=== PATIENT | female | born 1950 | race Caucasian/White ===

== ENCOUNTER 2022-12-23 07:56 | Outpatient (REF) | payer MEDICARE, SELFPAY ==
[2022-12-23 08:40] LABS: Hematocrit 43.4 % (37.0-47.0); Hemoglobin 13.9 g/dl (12.0-16.0); Mean Corpuscular Hemoglobin 28.7 pg (27.0-33.0); Mean Corpuscular Volume 89.7 fL (80.0-98.0); Mean Platelet Volume 11.7 fL (9.4-12.3); Platelet Count 229 X10*3/uL (160-400); Red Blood Count 4.84 X10*6/uL (4.20-5.50); Red Cell Distribution Width 13.8 % (11.0-16.0); White Blood Count 8.3 X10*3/uL (4.8-10.8)
[2022-12-23 08:47] LABS: Estimated Average Glucose 283 mg/dL; Hemoglobin A1c % 11.5 % (<6.0)
[2022-12-23 09:08] LABS: Alanine Aminotransferase 11 U/L (0-31); Albumin Level 3.9 g/dL (3.5-5.0); Alkaline Phosphatase 91 U/L (39-117); Anion Gap 15 (12-20); Aspartate Amino Transferase 15 U/L (5-31); Bilirubin Total 0.8 mg/dL (0.0-1.0); Blood Urea Nitrogen 17 mg/dL (9-16); Calcium 9.3 mg/dL (8.4-10.2); Carbon Dioxide 22 mmol/L (22-29); Chloride 108 mmol/L (96-108); Cholesterol 192 mg/dL (<200); Estimated Glomerular Filt Rate 44; Glucose Fasting 207 mg/dL (60-99); HDL Cholesterol 92 mg/dL (>40); LDL Cholesterol Calculated 83 mg/dL (<100); Potassium 4.2 mmol/L (3.3-5.1); Sodium 141 mmol/L (135-145); Total Protein 6.7 g/dL (6.5-8.0); Triglycerides 87 mg/dL (<150)
[2022-12-23 10:30] LABS: Appearance Urine Clear; Color Urine Yellow; Glucose Urine UA Negative (Negative); Leukocyte Esterase Urine Negative (Negative); Nitrite Urine Negative (Negative); UMIC TRIGGER UACC YES; Urine Blood Negative (Negative); Urine Ketones Negative (Negative); Urine Protein 300 (3+) mg/dL (Neg-Trace)
[2022-12-23 10:33] LABS: Bacteria Urine None Seen (None Seen); Hyaline Casts Urine 0-2 /LPF (0-2); RBC Urine 0-2 /HPF (0-2); WBC Urine 0-5 /HPF (0-5)
== END 2022-12-23 07:57 | disposition home or self-care (01) ==
LOC: HO.LAB 07:56
PROVIDERS: PCP Physician Assistant; Visit Provider Physician Assistant
DX: I10 Essential (primary) hypertension (principal); E78.2 Mixed hyperlipidemia; E11.65 Type 2 diabetes mellitus with hyperglycemia; Z79.4 Long term (current) use of insulin
CPT/HCPCS: 36415; 80053; 80061; 81001; 83036; 85027

== ENCOUNTER 2022-12-31 13:18 | Outpatient (AMB) | payer MEDICARE, SELFPAY ==
[2022-12-31 13:21] VITALS: BP 148/78; PULSE 115; O2SAT 96; BMI 47.5
--- NOTE | 2022-12-31 13:21 | A.OFFPC_ITS ---
Vital Signs 3 12/31/22 13:21 12/31/22 14:52 Height 5 ft 2 in Weight 260 lb BMI 47.5 BP 148/78 H 136/78 Blood Pressure Location Lt brachial Lt brachial Position Sitting Sitting Pulse 115 H 62 Pulse Source Pulse Oximeter Palpation Temp Source Skin Pulse Oximetry (%) 96 Oxygen Delivery Method Room Air Intake Visit Reasons: Physical Exam Intake Note: Patient is here today for a physical. pt states constant sweating X8 months, pt states right arm and breast pain X1 week. 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 Allergies codeine [Codeine] Allergy (Mild, Verified 12/31/22 13:49) NAUSEA/CONFUSION acetaminophen [Percocet] Allergy (Unknown, Verified 12/31/22 13:49) Unknown aspirin [From Percodan] Allergy (Unknown, Verified 12/31/22 13:49) Unknown hydrochlorothiazide Allergy (Unknown, Verified 12/31/22 13:49) Unknown lisinopril Allergy (Unknown, Verified 12/31/22 13:49) Unknown oxycodone [Percocet] Allergy (Unknown, Verified 12/31/22 13:49) Unknown Medication List - Last Reconciled 12/31/22 by NURY Morrissey alprazolam 1 mg PO BID 30 days amlodipine 5 mg PO DAILY blood sugar diagnostic (FreeStyle Test strips) 1 strip miscellaneous TID blood-glucose meter (FreeStyle [place] Lite kit) As directed famotidine 40 mg PO BID fexofenadine 180 mg PO DAILY PRN insulin aspart U-100 (Novolog FlexPen U-100 Insulin aspart) 14 units (0.14 mL) subcut Q8H 30 days insulin glargine U-300 conc (Toujeo SoloStar U-300 Insulin) 40 units (0.1333 mL) subcut BEDTIME 30 days omeprazole 20 mg PO DAILY sertraline 200 mg (2 x 100 mg) PO DAILY simvastatin 20 mg PO DAILY valsartan-hydrochlorothiazide 320-25 mg 1 tab PO DAILY Tobacco use date assessed: 12/31/22 Fall risk assessment: No Falls in past year Last assessed Fall Risk: 12/31/22 Dental Screening Dental Screen Date: 12/31/22 Did you have a dental visit in the last 12 months?: No Did you have a dental problem in the last 6 months where you did not have access to dental care?: No HPI Physical Exam 2 HPI0 Details Patient is a 72-year-old female who presents today for physical exam. Patient of RUDI Gordon. medical history significant for diabetes type 2, anxiety, hyperlipidemia, hypertension, GERD. Today we discussed patient's need for colon cancer screening, mammogram, and bone density screening. Patient declined colonoscopy and she would like to have Cologuard instead. She reports tetanus vaccine in the past 10 years. Normal eye exam 11/2022. Recent blood work results reviewed with the patient A1c 11.5 12/2022, patient reports that she is afraid to take 40 units of Toujeo at night and she was taking 22 units at night only. Reports blood sugars in the morning in 200s. She is on NovoLog sliding scale t.i.d. with meals. Patient denies shortness of breath or chest pain. Patient reports increased sweating for the past 8 months, she did use new deodorant and then she started with right breast pain that radiated to her right armpit and then right back, now she reports skin tag on her right back area. Denies any right breast lumps. Also reports hair loss for the past 9 months. Reports that Pepcid is not helping with acid reflux and she switched to omeprazole. [facility] Surgical History History of skin cancer History of removal of laparoscopic gastric banding device History of lumpectomy of left breast History of tubal ligation History of hernia repair Hx of laparoscopic gastric banding Family History Father No problems noted. Mother No problems noted. Family/Other Breast cancer Social History Housing: Condominium Alcohol intake: former Patient Tobacco Use Status: Never used Tobacco service: No Current occupational status: retired Cognitive needs: Yes (cane ) Hearing needs: No Vision needs: No Questionnaire PHQ-9 Over the last 2 weeks, how often have you been bothered by any of the following problems? 1. Little interest or pleasure in doing things: several days 2. Feeling down, depressed, or hopeless: not at all 3. Trouble falling or staying asleep, or sleeping too much: not at all 4. Feeling tired or having little energy: not at all 5. Poor appetite or overeating: not at all 6. Feeling bad about yourself - or that you are a failure or have let yourself or your family down: not at all 7. Trouble concentrating on things, such as reading the newspaper or watching television: not at all 8. Moving or speaking so slowly that other people could have noticed. Or the opposite - being so fidgety or restless that you have been moving around a lot more than usual: not at all 9. Thoughts that you would be better off or of hurting yourself in some way: not at all Total score: 1 Depression Screening Interpretation: Negative 42802 - PHQ-9 Billing: Yes Source: Developed by Drs. Chaparro Caro, Berta Aguilera, Vijay Zelaya and colleagues, with an educational jennie from [employer]. Thrive Questionnaire Date Thrive assessed: 10/09/20 AUDIT C Alcohol Use Questionnaire (AUDIT-C) 1. How often do you have a drink containing alcohol?: Never 2. How many drinks containing alcohol do you have on a typical day when you are drinking?: 1 or 2 (0) 3. How often do you have six or more drinks on one occasion?: Never Total Score: 0 Score Reviewed/Action Taken: No JUAN PABLO-7 AMB Questionnaire JUAN PABLO-7 Date JUAN PABLO - 7 assessed: 12/31/22 (pt is taking medication ) Feeling nervous, anxious, or on edge: 1 = Several days Not being able to stop or control worryin = Not at all Worrying too much about different things: 0 = Not at all Trouble relaxin = Not at all Being so restless that it is hard to sit still: 0 = Not at all Becoming easily annoyed or irritable: 0 = Not at all Feeling afraid as if something awful might happen: 0 = Not at all Total JUAN PABLO-7 score (0-4 normal; 5-9 mild; 10-14 moderate; 15-21 severe): 1 Source: Developed by Drs. Chaparro Caro, Berta Aguilera, Vijay Zelaya and colleagues, with an educational jennie from [employer]. JUAN PABLO-7 Assessment Billing JUAN PABLO-7 Assessment Tool: JUAN PABLO-7 Assessment 93418 Review of Systems Const Denies body aches, Denies chills, Denies fever(s) and Denies headache(s) Eyes Denies change in vision ENT Denies dizziness, Denies otalgia, Denies headache(s), Denies nasal discharge, Denies sinus pain and Denies sore throat Card Denies chest pain, Denies edema, Denies lightheadedness and Denies dyspnea Resp Denies cough, Denies dyspnea and Denies wheezing GI Denies constipation, Denies diarrhea, Denies nausea and Denies vomiting Denies dysuria Musc Denies myalgias Skin/Breast Reports as per HPI and Denies rash Neuro Denies dizziness and Denies headache(s) Aller/Immun Denies wheezing Physical exam (Primary Care) Vital Signs: Last Vital Signs Pulse 62 12/31/22 14:52 BP 136/78 12/31/22 14:52 Pulse Ox 96 12/31/22 13:21 Oxygen Delivery Method Room Air 12/31/22 13:21 BMI result Body Mass Index 47.5 Tobacco/Smoking Status: Tobacco use Status Tobacco use date assessed 12/31/22 12/31/22 13:23 Patient Tobacco Use Status Never used Tobacco 12/31/22 13:23 PHQ-9: PHQ-9 Score PHQ-9: Total score 1 01/02/23 16:08 Depression Screening Interpretation: Negative Thrive Assessment: Date of Thrive Assessment Date Thrive assessed 10/09/20 12/31/22 13:23 Const General: cooperative and no acute distress Orientation/consciousness: patient oriented x3 HENMT Head: Yes normocephalic and Yes atraumatic Ears: TM's normal bilaterally Face and sinus: Yes sinuses nontender Mouth: oropharynx normal and moist mucous membranes Throat: Yes posterior oropharynx normal Eyes General: appearance normal, both eyes and all related structures Pupils: Equal, round and reactive pupils present EOM: EOMs intact bilaterally Neck Neck: Yes normal visual inspection, Yes full ROM and Yes no lymphadenopathy Thyroid: Thyroid normal Chest Breast/axilla inspection: normal inspection of the breasts (right ) Breast/axilla palpation: normal palpation of the breasts (right ) and no axillary lymphadenopathy (right ) Chest/axillae images: 2 1. Right breast 11:00 o'clock tenderness noted, skin is intact, no palpable lump, no signs of infection noted Resp Effort & Inspection: normal respiratory effort and able to speak in complete sentences Auscultation: clear to auscultation bilaterally, no crackles, no rales, no rhonchi and no wheezes Cardio Rate: regular rate Rhythm: regular rhythm Heart sounds: S1 normal heart sound present, S2 normal heart sound present and no murmurs GI Palpation (GI): Soft to palpation, not firm, nontender, no guarding, not rigid and no hepatosplenomegaly Auscultation: normal bowel sounds Skin Other: Right upper back intact skin tag, patient reports tenderness Neuro General: patient oriented x3 Cranial nerves: Yes Equal, round and reactive pupils present Gait exam (Neuro): Normal gait present Extrem General: Yes full ROM and No edema Assessment and Plan Assessment & Plan (1) Sweating increase: Code(s): R61 - Generalized hyperhidrosis Plan: Dermatology referral (2) Skin tag: Code(s): L91.8 - Other hypertrophic disorders of the skin Plan: Dermatology referral (3) Breast pain, right: Code(s): N64.4 - Mastodynia Plan: Right breast 11:00 o'clock tenderness noted, skin is intact, no palpable lump, no signs of infection noted Will obtain mammogram and ultrasound of right breast (4) GERD (gastroesophageal reflux disease): Code(s): K21.9 - Gastro-esophageal reflux disease without esophagitis Plan: Continue omeprazole 20 mg daily Avoid GERD trigger foods Do not lay down 2-3 hours after evening meal (5) Post-menopausal: Code(s): Z78.0 - Asymptomatic menopausal state (6) Breast cancer screening: Code(s): Z12.39 - Encounter for other screening for malignant neoplasm of breast Qualifiers: Breast cancer screening modality: mammogram Qualified Code(s): Z12.31 - Encounter for screening mammogram for malignant neoplasm of breast (7) Colon cancer screening: Code(s): Z12.11 - Encounter for screening for malignant neoplasm of colon (8) HTN (hypertension): Code(s): I10 - Essential (primary) hypertension Qualifiers: Hypertension type: essential hypertension Qualified Code(s): I10 - Essential (primary) hypertension Plan: Goal BP equal or less than 140/90 Continue current treatment Low-sodium diet and weight loss (9) HLD (hyperlipidemia): Code(s): E78.5 - Hyperlipidemia, unspecified Qualifiers: Hyperlipidemia type: mixed hyperlipidemia Qualified Code(s): E78.2 - Mixed hyperlipidemia Plan: Continue current treatment Low-cholesterol diet and weight loss (10) JUAN PABLO (generalized anxiety disorder): Code(s): F41.1 - Generalized anxiety disorder Plan: Continue sertraline and Xanax b.i.d. 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 with meals: If blood sugar 150-199 take 8 units, 200-249 take 10 units, 250-299 take 12 units, 300-349 take 14 units, 350-399 takes 16 units, if blood sugar over 400, call MD. Reinforced low-carbohydrate diet and weight loss Endocrinology referral Patient reports diabetic eye exam 11/2022. (12) Adult general medical exam: Code(s): Z00.00 - Encounter for general adult medical examination without abnormal findings Plan: Repeat in 1 year (13) Morbid obesity with BMI of 45.0-49.9, adult: Code(s): E66.01 - Morbid (severe) obesity due to excess calories; Z68.42 - Body mass index [BMI] 45.0-49.9, adult Plan: Healthy food choices and exercise as tolerated Plan Follow-up with PCP in 3 months or sooner as needed Orders: Orders 2 MM tomosynthesis screening BI 12/31/22 Z12.39 - Encounter for other screening for malignant neoplasm of breast XR DEXA axial skeleton 12/31/22 Z78.0 - Asymptomatic menopausal state Microalbumin, Random (w Creat) 12/31/22 E11.9 - Type 2 diabetes mellitus without complications US breast RT complete 12/31/22 N64.4 - Mastodynia Referrals 2 Cologuard Test Z12.11 - Encounter for screening for malignant neoplasm of colon, Z12.12 - Encounter for screening for malignant neoplasm of rectum Dermatology Referral L91.8 - Other hypertrophic disorders of the skin, R61 - Generalized hyperhidrosis Endocrinology Referral E11.9 - Type 2 diabetes mellitus without complications Medications: New 2 flash glucose scanning reader (FreeStyle [place] 2 [place]) As directed 1 ea 0RF E11.9 - Type 2 diabetes mellitus without complications omeprazole 20 mg PO DAILY 30 caps 2RF K21.9 - Gastro-esophageal reflux disease without esophagitis flash glucose sensor (FreeStyle [place] 2 Sensor kit) As directed 1 ea 3RF E11.9 - Type 2 diabetes mellitus without complications Changed 2 From insulin glargine U-300 conc (Toujeo SoloStar U-300 Insulin) 40 units (0.1333 mL) subcut BEDTIME 30 days 3.999 mL 3RF E11.9 - Type 2 diabetes mellitus without complications To insulin glargine U-300 conc (Toujeo SoloStar U-300 Insulin) 30 units (0.1 mL) subcut DAILY 30 days 3 mL 3RF E11.9 - Type 2 diabetes mellitus without complications Refilled 2 simvastatin 20 mg PO DAILY 90 tabs 3RF E78.5 - Hyperlipidemia, unspecified sertraline 200 mg (2 x 100 mg) PO DAILY 180 tabs 2RF Discontinued 2 famotidine Discontinued Reason: Doctor's Order 40 mg PO BID 180 tabs 2RF Coding Level of Care Code Est Pt Prev Care >65y(54971) Diagnoses Sweating increase R61 Skin tag L91.8 Breast pain, right N64.4 GERD (gastroesophageal reflux disease) K21.9 Post-menopausal Z78.0 Encounter for screening mammogram for malignant neoplasm of breast Z12.31 Breast cancer screening modality: mammogram Colon cancer screening Z12.11 Essential hypertension I10 Hypertension type: essential hypertension Mixed hyperlipidemia E78.2 Hyperlipidemia type: mixed hyperlipidemia JUAN PABLO (generalized anxiety disorder) F41.1 Type 2 diabetes mellitus with hyperglycemia, with long-term current use of insulin E11.65; Z79.4 Diabetes mellitus complication status: with hyperglycemia 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
[2022-12-31 14:52] VITALS: BP 136/78; PULSE 62
== END 2022-12-31 14:57 | disposition home or self-care (01) ==
PROVIDERS: PCP Physician Assistant; Visit Provider Nurse Practitioner Family
DX: Z00.00 Encounter for general adult medical examination without abnormal findings (principal); K21.9 Gastro-esophageal reflux disease without esophagitis; I10 Essential (primary) hypertension; E11.65 Type 2 diabetes mellitus with hyperglycemia; Z79.4 Long term (current) use of insulin; Z68.42 Body mass index [BMI] 45.0-49.9, adult; E66.01 Morbid (severe) obesity due to excess calories; L91.8 Other hypertrophic disorders of the skin; R61 Generalized hyperhidrosis; N64.4 Mastodynia; Z78.0 Asymptomatic menopausal state; E78.2 Mixed hyperlipidemia
CPT/HCPCS: 99397

== ENCOUNTER 2023-01-05 17:16 | Emergency (ER) | payer MEDICARE, SELFPAY ==
--- NOTE | ~2023-01-05 | XR_ITS ---
EXAMINATION: XR CHEST CLINICAL INFORMATION: Pain COMPARISON: None available. TECHNIQUE: 2 views of the chest were obtained. FINDINGS: The cardiac silhouette is normal. There is left basilar atelectasis. There are no areas of consolidation. There are no pleural effusions or pneumothoraces. The bones and soft tissues are unremarkable for the patient's age. XR/XR chest 2V IMPRESSION: Left basilar atelectasis.
--- NOTE | ~2023-01-05 | US_ITS ---
EXAMINATION: US DIAGNOSTIC ULTRASOUND BREAST, RIGHT CLINICAL INFORMATION: Right breast upper outer quadrant pain, without palpable lump. COMPARISON: None available. TECHNIQUE: Ultrasound of the breast is performed with real-time devries scale imaging and color Doppler. FINDINGS: There is no focal suspicious finding. There is no solid mass, architectural abnormality, duct ectasia, or edema in the soft tissue planes. US/US breast RT limited IMPRESSION: Negative examination. ASSESSMENT: BI-RADS 1: Negative RECOMMENDATION: 1. Continued annual screening mammography. 2. Management of right breast upper outer quadrant pain without palpable lump on a clinical basis. This patient's information was entered into a reminder system with a target due date for their next mammogram.
[2023-01-05 17:29] VITALS: BP 194/86; PULSE 77; RESP 18; TEMP 36.6; O2SAT 96; BMI 47.5
--- NOTE | 2023-01-05 17:37 | ED_ITS ---
HPI - General Adult General Chief complaint: General Medical Stated complaint: shoulder pain, no injury Time Seen by Provider: 01/05/23 17:41 Source: patient, RN notes reviewed and old records reviewed Mode of arrival: ambulatory Limitations: no limitations History of Present Illness HPI narrative: 72-year-old female with past medical history significant for morbid obesity, GERD, insulin-dependent diabetes, hypertension, hyperlipidemia presents for evaluation of multiple complain Patient's main complaint is right-sided shoulder and breast pain. She states the pain has been present for quite some time. The pain radiates to her mid back. She also complains of increased sweating as well as weight loss and hair loss She reports that the symptoms started at least 8 months ago She also reports about a 50 lb weight loss in the last year Patient also reports increased sweating especially from her axilla She is following with her primary care provider and was seen just this past week pain She had ultrasound of breath scheduled for 3 weeks from now. She denies any fevers, chills, cough Denies any injury to the shoulder, chest or back She reports that other than her insulin being adjusted due to uncontrolled diabetes she has not had any medication changes recently Related Data Previous Rx's Medication Instructions Recorded fexofenadine 180 mg tablet 180 mg PO DAILY PRN allergy 10/25/20 symptoms #30 tabs amlodipine 5 mg tablet 5 mg PO DAILY #90 tabs 05/17/22 blood sugar diagnostic (FreeStyle 1 strip miscellaneous TID #300 05/17/22 Test strips) strips valsartan 320 1 tab PO DAILY #90 tabs 05/17/22 mg-hydrochlorothiazide 25 mg tablet insulin aspart U-100 100 unit/mL 14 unit (0.14 mL) subcut Q8H 30 11/06/22 (3 mL) subcutaneous pen (Novolog days #12.6 mL FlexPen U-100 Insulin aspart) blood-glucose meter (FreeStyle #1 ea 11/22/22 [place] Lite kit) alprazolam 1 mg tablet 1 mg PO BID 30 days #60 tabs 11/25/22 insulin glargine U-300 conc 300 30 unit (0.1 mL) subcut DAILY 30 12/31/22 unit/mL (1.5 mL) subcutaneous pen days #3 mL (Toujeo SoloStar U-300 Insulin) omeprazole 20 mg capsule,delayed 20 mg PO DAILY #30 caps 12/31/22 release sertraline 100 mg tablet 200 mg (2 x 100 mg) PO DAILY #180 12/31/22 tabs simvastatin 20 mg tablet 20 mg PO DAILY #90 tabs 12/31/22 flash glucose scanning reader #1 ea 01/01/23 (FreeStyle [place] 2 [place]) flash glucose sensor (FreeStyle #1 ea 01/01/23 Martin 2 Sensor kit) Allergies Allergy/AdvReac Type Severity Reaction Status Date / Time codeine [Codeine] Allergy Mild NAUSEA/CONF Verified 12/31/22 13:49 USION aspirin [From Percodan] Allergy Unknown Unknown Verified 12/31/22 13:49 hydrochlorothiazide Allergy Unknown Unknown Verified 12/31/22 13:49 lisinopril Allergy Unknown Unknown Verified 12/31/22 13:49 oxycodone [Percocet] Allergy Unknown Unknown Verified 12/31/22 13:49 Review of Systems 2 Constitutional: Constitutional: Denies chills, Reports excessive sweating, Denies fever(s), Denies headache(s), Reports lethargy, Reports malaise and Reports weight loss Eyes: Eyes: Denies blurry vision and Denies exophthalmos ENT: Denies dizziness and Denies headache(s) Cardiovascular: Cardiovascular: Reports chest pain (right sided) and Denies dyspnea Respiratory: Respiratory: Denies cough, Denies pain with cough and Denies dyspnea Gastrointestinal: Gastrointestinal: Denies abdominal pain, Denies nausea and Denies vomiting Genitourinary: Genitourinary: Denies difficulty voiding Musculoskeletal: Musculoskeletal: Reports back pain Integumentary/Breasts: Skin/Breast: Denies rash Neurologic: Denies dizziness and Denies headache(s) Endocrine: Endocrine: Reports excessive sweating PMFSH Past Medical History Surgical History History of skin cancer History of removal of laparoscopic gastric banding device History of lumpectomy of left breast History of tubal ligation History of hernia repair Hx of laparoscopic gastric banding Family History Family History Father No problems noted. Mother No problems noted. Family/Other Breast cancer Social History Social History (Reviewed 12/31/22 @ 14:19 by LYNN Morrissey Housing: Condominium Alcohol intake: never Patient Tobacco Use Status: Never used Tobacco Smoked in Last 30 Days: No Use of substances other than those prescribed or required for medical reasons: No Advance Directives: No Advance Directives Information Provided: No service: No Current occupational status: retired Cognitive needs: Yes (cane ) Hearing needs: No Vision needs: No Physical Exam ED Vital Signs: Vital Signs - 24 hr 01/05/23 17:29 01/05/23 19:59 Temperature 97.8 F 98.1 F Pulse Rate 77 67 Respiratory Rate 18 19 Blood Pressure 194/86 H 164/77 H Pulse Oximetry 96 98 Oxygen Delivery Method Room Air Room Air BMI result Body Mass Index 47.5 Const General: healthy appearing, comfortable, no acute distress, alert and awake Nutritional Appearance: well nourished Orientation/consciousness: patient oriented x3 HENMT Head: Yes normocephalic and Yes atraumatic Eyes Eyelids: Yes eyelids normal Conjunctivae: conjunctivae normal Sclerae: sclerae normal Corneas: corneas normal Pupils: Equal, round and reactive pupils present EOM: EOMs intact bilaterally Neck Neck: Yes full ROM Chest Chest palpation & inspection: normal inspection of the chest Breast/axilla palpation: normal palpation of the breasts, normal palpation of the axillae and no axillary lymphadenopathy Resp Effort & Inspection: normal respiratory effort, able to speak in complete sentences and not labored Cardio Rate: regular rate Rhythm: regular rhythm GI Inspection: No distended Palpation (GI): Soft to palpation, not firm, nontender, no guarding and not rigid Skin General skin exam: no rashes or lesions noted and elasticity normal Neuro General: patient oriented x3 Cranial nerves: Yes Equal, round and reactive pupils present and Yes Bilaterally intact EOM present Cognition (Neuro): normal cognition Extrem Other: Moving all extremities well without any obvious deformities Course Course Course Narrative: RME: 72 yold female presents to the ED for chronic right breast radiating towards back. Breast US and mammgoram ordered. labs ordered and US ordered Reevaluation(s) Reevaluation #1: Patient's labs reviewed without any concerning abnormalities. Chest x-ray showed left basilar atelectasis. Still awaiting breast ultrasound. Time: 19:59 Medical Decision Making Medical Decision Making MDM Narrative: 72-year-old female presents for evaluation of numerous complaints. Her chief complaint is right-sided chest wall pain/breast pain. Will get ultrasound of the breast to rule out mass or abscess. There are no overlying skin changes. Will obtain an EKG to evaluate her chest pain but I feel ACS is much less likely as the pain radiates the right side and is reproducible on exam. Will get a chest x-ray as she reports her pain is worse with deep breathing. She has no shortness of breath, hypoxia or tachycardia, PE is much less likely. I will add on a TSH with reflex T4 and a random cortisol level. She does have some degree of central obesity, so Huttig's disease is on differential. Differential Diagnosis Differential Diagnoses: The differential diagnosis associated with the presentation includes Chest pain ACS Breast mass Abscess Smitha disease Hyperthyroid is Hypothyroidism Metabolic derangement Uncontrolled diabetes Lab Data MDM Lab Attestation statement: I reviewed the patient's lab results. No leukocytosis, no significant anemia, normal platelet count. No electrolyte abnormalities. Mild elevation of BUN and creatinine 35 and a creatinine 1.51. He patient is not nauseous, vomiting or having diarrhea, she may hydrate orally. Hyperglycemia without evidence of DKA. Normal LFTs 01/05/23 18:27 01/05/23 18:27 Labs: Lab Results 01/05/23 01/05/23 Range/Units 17:58 18:27 WBC 8.1 (4.8-10.8) X10*3/uL RBC 4.81 (4.20-5.50) X10*6/uL Hgb 13.8 (12.0-16.0) g/dl Hct 42.6 (37.0-47.0) % MCV 88.6 (80.0-98.0) fL MCH 28.7 (27.0-33.0) pg MCHC 32.4 (31.0-35.0) g/dl RDW 13.6 (11.0-16.0) % Plt Count 281 (160-400) X10*3/uL MPV 11.1 (9.4-12.3) fL Immature Gran % (Auto) 0.6 H (0.0-0.4) % Neut % (Auto) 63.8 (45-73) % Lymph % (Auto) 27.1 (20-40) % [place] % (Auto) 6.3 (2-11) % Eos % (Auto) 1.6 (0-4) % Baso % (Auto) 0.6 (0-2) % Lymph # (Auto) 2.2 (1.2-4.9) X10*3/uL [place] # (Auto) 0.5 (0.1-1.2) X10*3/uL Eos # (Auto) 0.1 (0.0-0.4) X10*3/uL Baso # (Auto) 0.1 (0.0-0.2) X10*3/uL Abs Immat Gran (auto) 0.05 H (0.00-0.03) X10*3/uL Absolute Neuts (auto) 5.2 (2.0-8.3) x10*3/uL Absolute Nucleated RBC 0.000 (0.0-0.012) X10*3/uL Nucleated RBC % (auto) 0.0 (0.0-0.2) /100WBC Sodium 141 (135-145) mmol/L Potassium 4.3 (3.3-5.1) mmol/L Chloride 108 (96-108) mmol/L Carbon Dioxide 23 (22-29) mmol/L Anion Gap 14 (12-20) BUN 35 H (9-16) mg/dL Creatinine 1.51 H (0.5-1.4) mg/dL Estim Creat Clear Calc 40.4 Estimated GFR 34 POC Glucose 190 H (60-115) mg/dL Random Glucose 209 H (60-115) mg/dL Calcium 9.8 (8.4-10.2) mg/dL Total Bilirubin 0.4 (0.0-1.0) mg/dL AST 12 (5-31) U/L ALT 12 (0-31) U/L Alkaline Phosphatase 82 (39-117) U/L Total Protein 6.8 (6.5-8.0) g/dL Albumin 4.1 (3.5-5.0) g/dL TSH 2.59 (0.32-4.0) uIU/mL Random Cortisol 7.8 ug/dL Independent Interpretation I performed an independent interpretation of an: Plain X-Ray (No focal infiltrates) Radiology Impression Discussion of test interpretation with radiology: I have reviewed the radiologist's reading. (Chest x-ray -left basilar atelectasis) Discharge Plan Discharge Clinical Impression: Right-sided chest wall pain Patient Disposition: Home, Self-Care Instructions: Chest Wall Pain (ED) Additional Instructions: Your workup in the emergency department today was reassuring. Your blood work was in the significant for very mild dehydration sign you may drink lots of fluids for next 2-3 days to help improve this. You had multiple labs drawn including a thyroid studies and and cortisol level which is within normal limits. Your chest x-ray did not show any explanation of your or abnormality Follow-up with your primary doctor, you may benefit from seeing an sales engineering manager In the meantime, you may use ibuprofen/Tylenol for pain. You may try methocarbamol to help with muscle spasms to see if this helps alleviate your symptoms This may make you sleepy, did not drink alcohol or drive after taking Prescriptions: No Action fexofenadine 180 mg tablet 180 mg PO DAILY PRN (Reason: allergy symptoms) Qty: 30 4RF valsartan-hydrochlorothiazide 320-25 mg tablet 1 tab PO DAILY Qty: 90 3RF amlodipine 5 mg tablet 5 mg PO DAILY Qty: 90 3RF FreeStyle Test Strip 1 strip miscellaneous TID Qty: 300 6RF insulin aspart U-100 [Novolog FlexPen U-100 Insulin] 100 unit/mL (3 mL) insulin pen 14 unit subcut Q8H 30 Days Qty: 12.6 3RF (DME) blood-glucose meter [FreeStyle [place] Lite] Kit See Rx Instructions .Route Qty: 1 0RF Rx Instructions: As directed alprazolam 1 mg tablet 1 mg PO BID 30 Days Qty: 60 0RF sertraline 100 mg tablet 200 mg PO DAILY Qty: 180 2RF simvastatin 20 mg tablet 20 mg PO DAILY Qty: 90 3RF Toujeo SoloStar U-300 Insulin 300 unit/mL (1.5 mL) insulin pen 30 unit subcut DAILY 30 Days Qty: 3 3RF omeprazole 20 mg capsule,delayed release(DR/EC) 20 mg PO DAILY Qty: 30 2RF (DME) FreeStyle [place] 2 [place] Misc See Rx Instructions .MEDSUPPLY Qty: 1 0RF Rx Instructions: As directed (DME) FreeStyle Martin 2 Sensor Kit See Rx Instructions .MEDSUPPLY Qty: 1 3RF Rx Instructions: As directed
[2023-01-05 18:03] LABS: Glucose, Whole Blood 190 mg/dL (60-115)
--- NOTE | 2023-01-05 18:07 | PC.NURSE ---
provider bedside speaking w/ pt to formulate plan of care. pt comes in today d/t increase in right breast discomfort that radiates towards right shoulder. pt also verbalizing hair loss, tooth loss, weight loss, and an increase in stress. pt also states that she recently had change in insulin dosages/medications. provider aware. POC = 190 mg/dL. pt currently being transported to ultrasound. will finish reassessing pt when she returns.
[2023-01-05 18:32] LABS: MANUAL DIFF FLAG NO
[2023-01-05 18:33] LABS: Basophils Absolute Auto 0.1 X10*3/uL (0.0-0.2); Basophils Percent Auto 0.6 % (0-2); Eosinophils Absolute Auto 0.1 X10*3/uL (0.0-0.4); Eosinophils Percent Auto 1.6 % (0-4); Hematocrit 42.6 % (37.0-47.0); Hemoglobin 13.8 g/dl (12.0-16.0); Imm Gran Abs Auto 0.05 X10*3/uL (0.00-0.03); Imm Gran Pct Auto 0.6 % (0.0-0.4); Lymphocytes Absolute Auto 2.2 X10*3/uL (1.2-4.9); Lymphocytes Percent Auto 27.1 % (20-40); Mean Corpuscular HGB Conc 32.4 g/dl (31.0-35.0); Mean Corpuscular Hemoglobin 28.7 pg (27.0-33.0); Mean Corpuscular Volume 88.6 fL (80.0-98.0); Mean Platelet Volume 11.1 fL (9.4-12.3); Monocytes Absolute Auto 0.5 X10*3/uL (0.1-1.2); Monocytes Percent Auto 6.3 % (2-11); Neutrophils Absolute Auto 5.2 x10*3/uL (2.0-8.3); Neutrophils Percent Auto 63.8 % (45-73); Platelet Count 281 X10*3/uL (160-400); Red Blood Count 4.81 X10*6/uL (4.20-5.50); Red Cell Distribution Width 13.6 % (11.0-16.0); White Blood Count 8.1 X10*3/uL (4.8-10.8)
[2023-01-05 18:47] LABS: Alanine Aminotransferase 12 U/L (0-31); Albumin Level 4.1 g/dL (3.5-5.0); Alkaline Phosphatase 82 U/L (39-117); Anion Gap 14 (12-20); Aspartate Amino Transferase 12 U/L (5-31); Bilirubin Total 0.4 mg/dL (0.0-1.0); Blood Urea Nitrogen 35 mg/dL (9-16); Calcium 9.8 mg/dL (8.4-10.2); Carbon Dioxide 23 mmol/L (22-29); Chloride 108 mmol/L (96-108); Creatinine Clr Calc Pharmacy 40.4; Estimated Glomerular Filt Rate 34; Glucose Random 209 mg/dL (60-115); Potassium 4.3 mmol/L (3.3-5.1); Sodium 141 mmol/L (135-145); Total Protein 6.8 g/dL (6.5-8.0)
[2023-01-05 19:07] LABS: Cortisol Random 7.8 ug/dL; TSH reflex Free T4 2.59 uIU/mL (0.32-4.0)
[2023-01-05 19:59] VITALS: BP 164/77; PULSE 67; RESP 19; TEMP 36.7; O2SAT 98
[2023-01-05 20:00] VITALS: BP 171/100; PULSE 70; RESP 18; TEMP 36.6; O2SAT 97
--- NOTE | 2023-01-05 20:02 | ECG_ITS ---
Test Reason : chest pain Blood Pressure : / mmHG Vent. Rate : 068 BPM Atrial Rate : 068 BPM P-R Int : 154 ms QRS Dur : 084 ms QT Int : 398 ms P-R-T Axes : 036 -12 054 degrees QTc Int : 423 ms Poor data quality, interpretation may be adversely affected Normal sinus rhythm Minimal voltage criteria for LVH, may be normal variant ( R in aVL ) Nonspecific ST and T wave abnormality Abnormal ECG When compared with ECG of 25-AUG-2008 13:50, T wave inversion now evident in Lateral leads Referred By: Tian Otoole Electronically Signed By:FERN MOORE
--- NOTE | 2023-01-05 20:49 | PC.NURSE ---
lyudmila. ben equally. talking w/no distress. +CMS. niece at bedside. resting. no cp/sob/dizziness
== END 2023-01-05 22:06 | disposition home or self-care (01) ==
PROVIDERS: Physician Assistant; Emergency Provider Emergency Medicine Emergency Medical Services; PCP Physician Assistant
DX: R07.89 Other chest pain (principal); M54.50 Low back pain, unspecified; N64.4 Mastodynia; E11.9 Type 2 diabetes mellitus without complications; Z79.4 Long term (current) use of insulin; Z79.899 Other long term (current) drug therapy
CPT/HCPCS: 36415; 71046; 76642; 80053; 82533; 82947; 84443; 85025; 93005; 99284

== ENCOUNTER 2023-01-17 13:01 | Outpatient (REF) | payer MEDICARE, SELFPAY | END 2023-01-17 13:02 | disposition home or self-care (01) | LOC: HO.MAMMO 13:01 | PROVIDERS: PCP Physician Assistant; Visit Provider Nurse Practitioner Family | DX: N64.4 Mastodynia (principal) | CPT/HCPCS: 76642; 77062; 77066 ==

== ENCOUNTER → 2023-01-17 13:30 | Outpatient (BNV) | payer MEDICARE, SELFPAY | PROVIDERS: PCP Physician Assistant; Visit Provider Radiology Diagnostic Radiology | DX: N60.11 Diffuse cystic mastopathy of right breast (principal); R92.323 Mammographic fibroglandular density, bilateral breasts | CPT/HCPCS: 76642; 77062; 77066 ==

== ENCOUNTER 2023-02-07 10:28 | Outpatient (REF) | payer MEDICARE, SELFPAY ==
--- NOTE | ~2023-02-07 | MM_ITS ---
EXAMINATION: BONE DENSITOMETRY CLINICAL INDICATION: Menopause. COMPARISON: This is the patient's baseline examination. TECHNIQUE: Using a [employer] DXA System (software version: 13.1) manufactured by [employer], dual-energy x-ray absorptiometry was performed of the lumbar spine and left hip. The images are of good technical quality. Summary results are attached. FINDINGS: LEFT FEMUR, NECK: BMD 0.739 g/cm2, Z-score -1.1, T-score -2.1, osteopenia. LEFT FEMUR, TOTAL: BMD 0.894 g/cm2, Z-score -0.1, T-score -0.9, normal. AP SPINE L1-L3 (excluding L4): The data of L1-L4 has been changed to exclude the L4 vertebral body, because degenerative sclerosis at this level may cause overestimation of lumbar spine density. BMD 1.117 g/cm2, Z-score 0.1, T-score -0.4, normal. IDENTIFIED RISK FACTORS: Menopause, height loss. HISTORY OF FRACTURE: None listed. MEDICATIONS: Vitamin D. MM/XR DEXA axial skeleton IMPRESSION: 1. DIAGNOSIS: Osteopenia based on the lowest T-score value of -2.1 in the femoral neck applying World Health Organization criteria. 2. 10-YEAR FRACTURE RISK PREDICTION, FRAX: Major osteoporotic fracture (clinical spine, forearm, hip or shoulder) 11.2%. Hip fracture 2.6%. 3. Treatment Recommendations: NOF guidelines recommend consideration for treatment in postmenopausal women and men age 50 and older presenting with the following: -A hip or vertebral (clinical or morphometric) fracture. -T-score less than or equal to -2.5 at the femoral neck or spine after appropriate evaluation to exclude secondary causes. -Low bone mass at the hip or spine and a 10-year fracture probability by FRAX of greater than or equal to 3% for hip fracture or greater than or equal to 20% for major osteoporotic fracture based on the [place] adapted WHO algorithm. 4. Other Recommendations: All treatment decisions require clinical judgment and consideration of individual patient factors, including patient preferences, comorbidities, previous drug use, risk factors not captured in the FRAX model (e.g. frailty, falls, vitamin D deficiency, increased bone turnover, interval significant decline in bone density) and possible under or overestimation of fracture risk by FRAX. Additional medical evaluation for secondary cause of low bone mineral density may be appropriate. FUTURE SCAN RECOMMENDATION: People with diagnosed cases of osteoporosis or at high risk for fracture should have regular bone mineral density tests. For patients eligible for Medicare, routine testing is allowed once every 2 years. The testing frequency can be increased to one year for patients who have rapidly progressing disease, those who are receiving or discontinuing medical therapy to restore bone mass, or have additional risk factors.
== END 2023-02-07 10:29 | disposition home or self-care (01) ==
LOC: HO.MAMMO 10:28
PROVIDERS: PCP Physician Assistant; Visit Provider Nurse Practitioner Family
DX: Z13.820 Encounter for screening for osteoporosis (principal); Z78.0 Asymptomatic menopausal state
CPT/HCPCS: 77080

== ENCOUNTER 2023-06-05 13:21 | Outpatient (AMB) | payer MEDICARE, SELFPAY ==
--- NOTE | 2023-06-05 13:28 | MHC.PC.OV ---
Vital Signs 06/05/23 13:29 Height 5 ft 2 in Weight 262 lb 5.601 oz BMI 48.0 BP 168/90 H Blood Pressure Location Lt brachial Position Sitting Pulse 60 Pulse Source Pulse Oximeter Pulse Oximetry (%) 97 Oxygen Delivery Method Room Air Intake Visit Reasons: 3 Month Follow Up DM Cna Gna Required: No Accompanied by: Self / Same As Patient Allergies codeine [Codeine] Allergy (Mild, Verified 06/05/23 13:44) NAUSEA/CONFUSION aspirin [From Percodan] Allergy (Unknown, Verified 06/05/23 13:44) Unknown hydrochlorothiazide Allergy (Unknown, Verified 06/05/23 13:44) Unknown lisinopril Allergy (Unknown, Verified 06/05/23 13:44) Unknown oxycodone [Percocet] Allergy (Unknown, Verified 06/05/23 13:44) Unknown Medication List - Last Reconciled 06/05/23 by Shashi Gordon PA-C alprazolam 1 mg PO BID 30 days amlodipine 5 mg PO DAILY blood sugar diagnostic (VisTracksuch Verio test strips) Testing 3 times a day blood-glucose meter (VisTracksuch Verio Flex Meter) As directed fexofenadine 180 mg PO DAILY PRN insulin aspart U-100 (Novolog FlexPen U-100 Insulin aspart) 14 units (0.14 mL) subcut Q8H 30 days insulin glargine U-300 conc (Toujeo SoloStar U-300 Insulin) 30 units (0.1 mL) subcut DAILY 30 days lancets (ThingWorxTouch Delica Plus Lancet) Testing 3 times a day omeprazole 20 mg PO DAILY sertraline 200 mg (2 x 100 mg) PO DAILY simvastatin 20 mg PO DAILY valsartan-hydrochlorothiazide 320-25 mg 1 tab PO DAILY Tobacco use date assessed: 06/05/23 Fall risk assessment: 2 + Falls in past year Last assessed Fall Risk: 06/05/23 Dental Screening Dental Screen Date: 06/05/23 Did you have a dental visit in the last 12 months?: No Did you have a dental problem in the last 6 months where you did not have access to dental care?: Yes Was dental information given to patient?: Yes HPI 3 Month Follow Up DM HPI Details Patient is a 72 yo female here today for follow-up visit. . Patinet has a PMH of DMII, HTN, GERD, depression, renal insufficiency, severe anxiety, OA and fibromyalgia. .. Anxiety: Reports she has been a little more anxious and depressed as of late due to recently meeting her daughter whom she gave up for adoption. This is causing a little bit more anxiety. She does understand she is Benzodiazepine dependent. We had a lengthy discussion about benzodiazepine dependence. Patient has been placed on alprazolam over the last 20 years ( by previous PCPs) and has never been able to wean herself off without severe withdrawal symptoms. She does admit to trying other antianxiety meds without much success. I have warned her yet again about her benzo dependence and she understands her risk .. HTN: Patient's blood pressure elevated today in office. Has been under lot of stress as of late. DOes not check blood pressure at home, denies any chest pain, shortness of breath, lower extremity edema. Does report taking her blood pressure medications daily. .. DMII: Her Diabetes has been suboptimally controlled. Patient has lost follow-up with Endocrinology. Was trying to be set up for a continues glucose monitor Today's A1c at 9.2. PLAN: Will increase her Tresiba to 30 units daily Does check her blood sugars at home. Does report Labile blood sugar numbers. Report When she is stressed or not feeling well her sugars will elevate Laboratory Tests 12/23/22 01/05/23 06/05/23 08:12 18:27 13:25 Creatinine 1.51 H Random Glucose 209 H Hgb A1c (Clinic) 9.2 H Hemoglobin A1c % 11.5 H [facility] Surgical History History of skin cancer History of removal of laparoscopic gastric banding device History of lumpectomy of left breast History of tubal ligation History of hernia repair Hx of laparoscopic gastric banding Family History Father No problems noted. Mother No problems noted. Family/Other Breast cancer Social History Housing: Condominium Alcohol intake: never Patient Tobacco Use Status: Never used Tobacco e-Cigarette/Vaping Use: Never Used service: No Current occupational status: retired Cognitive needs: Yes (cane ) Hearing needs: No Vision needs: No Questionnaire PHQ-9 Over the last 2 weeks, how often have you been bothered by any of the following problems? 1. Little interest or pleasure in doing things: more than half the days 2. Feeling down, depressed, or hopeless: nearly every day 3. Trouble falling or staying asleep, or sleeping too much: nearly every day 4. Feeling tired or having little energy: nearly every day 5. Poor appetite or overeating: nearly every day 6. Feeling bad about yourself - or that you are a failure or have let yourself or your family down: nearly every day 7. Trouble concentrating on things, such as reading the newspaper or watching television: not at all 8. Moving or speaking so slowly that other people could have noticed. Or the opposite - being so fidgety or restless that you have been moving around a lot more than usual: not at all 9. Thoughts that you would be better off or of hurting yourself in some way: not at all Total score: 17 Depression Screening Interpretation: Positive Depression Screening Follow-up: Existing condition Depression Screening Done: Yes 04280 - PHQ-9 Billing: Yes Source: Developed by Drs. Chaparro Caro, Berta Aguilera, Vijay Zelaya and colleagues, with an educational jennie from [employer]. Thrive Questionnaire Date Thrive assessed: 06/05/23 I am a: Patient What is your living situation today?: I have a steady place to live Within the past 12 months, did the food you bought not last and you didn't have the money to get more?: Never true Within the past 12 months, did you worry whether your food would run out before you got money to buy more?: Never true Do you have trouble paying for medicines?: No Do you have trouble getting transportation to medical appointments?: No Do you have trouble paying your heating and electricity bill?: No Do you have trouble taking care of your child, family member or friend?: No Do you have trouble with day-to-day activities such as bathing, preparing meals, shopping, managing finances, etc.?: No Are you currently unemployed and looking for a job?: No Are you interested in more education?: No Please select the resources that you would like help with: None Currently or been in a relationship where the following occur: no concerns reported THRIVE Score: 0 AUDIT C Alcohol Use Questionnaire (AUDIT-C) 1. How often do you have a drink containing alcohol?: Never 3. How often do you have six or more drinks on one occasion?: Never Total Score: 0 JUAN PABLO-7 AMB Questionnaire JUAN PABLO-7 Date JUAN PABLO - 7 assessed: 06/05/23 (pt is taking medication ) Feeling nervous, anxious, or on edge: 3 = Nearly every day Not being able to stop or control worryin = Nearly every day Worrying too much about different things: 3 = Nearly every day Trouble relaxin = Nearly every day Being so restless that it is hard to sit still: 3 = Nearly every day Becoming easily annoyed or irritable: 3 = Nearly every day Feeling afraid as if something awful might happen: 3 = Nearly every day Total JUAN PABLO-7 score (0-4 normal; 5-9 mild; 10-14 moderate; 15-21 severe): 21 Source: Developed by Drs. Chaparro Caro, Berta Aguilera, Vijay Zelaya and colleagues, with an educational jennie from [employer]. JUAN PABLO-7 Assessment Billing JUAN PABLO-7 Assessment Tool: JUAN PABLO-7 Assessment 22278 Review of Systems Const Denies headache(s) Eyes Denies loss of vision ENT Denies vertigo, Denies dizziness, Denies headache(s) and Denies sore throat Card Denies chest pain, Denies leg edema and Denies lightheadedness Resp Denies cough, Denies hemoptysis and Denies wheezing GI Denies abdominal pain, Denies melena, Denies constipation, Denies diarrhea and Denies vomiting Denies urinary frequency, Denies dysuria and Denies urinary urgency Musc Denies arthralgias, Denies joint swelling, Denies numbness and Denies tingling Neuro Denies Abnormal speech present, Denies behavioral changes, Denies vertigo, Denies dizziness, Denies headache(s), Denies loss of vision, Denies memory loss, Denies numbness and Denies tingling Psych Denies anxiety, Denies behavioral changes, Denies depression, Denies memory loss and Denies panic attacks Cain/Lymph Denies easy bleeding and Denies easy bruising Aller/Immun Denies wheezing Physical exam (Primary Care) Vital Signs: Last Vital Signs Pulse 60 06/05/23 13:29 BP 168/90 H 06/05/23 13:29 Pulse Ox 97 06/05/23 13:29 Oxygen Delivery Method Room Air 06/05/23 13:29 BMI result Body Mass Index 48.0 BMI Assessment/Plan discussion: High Tobacco/Smoking Status: Tobacco use Status Tobacco use date assessed 06/05/23 06/05/23 13:39 Patient Tobacco Use Status Never used Tobacco 06/05/23 13:29 e-Cigarette/Vaping Use Never Used 06/05/23 13:39 PHQ-9: PHQ-9 Score PHQ-9: Total score 17 06/05/23 15:07 Depression Screening Interpretation: Positive Depression Screening Follow-up: Existing condition Thrive Assessment: Date of Thrive Assessment Date Thrive assessed 06/05/23 06/05/23 13:42 Currently or been in a relationship where the following occur: no concerns reported Const Other: Morbidly obese General: no acute distress, alert and awake Nutritional Appearance: well nourished Orientation/consciousness: oriented to person, oriented to place and oriented to time HENMT Ears: TM's normal bilaterally General nose exam: Normal nasal mucous membranes and turbinates present Eyes Conjunctivae: conjunctivae normal Sclerae: sclerae normal Pupils: Equal, round and reactive pupils present Neck Neck: Yes no lymphadenopathy and Yes no JVD Thyroid: Thyroid normal Carotids: no bruits Resp Effort & Inspection: normal respiratory effort and not tachypneic Auscultation: no crackles, no rales, no rhonchi and no wheezes Cardio Rate: regular rate Rhythm: regular rhythm Heart sounds: no murmurs and normal S1 and S2 GI Palpation (GI): Soft to palpation, nontender, no hepatomegaly and no splenomegaly Auscultation: normal bowel sounds Skin General skin exam: no rashes or lesions noted and dry skin Neuro General: oriented to person, oriented to place and oriented to time Cranial nerves: Yes Equal, round and reactive pupils present Speech: No Abnormal speech present Gait exam (Neuro): Normal gait present Motor exam (neuro): no tremor noted Extrem Right upper extremity: full ROM Left upper extremity: full ROM Right lower extremity: full ROM; no edema Left lower extremity: full ROM; no edema Psych Mental Status: mental status grossly normal Speech and movement: Normal speech and movement present Affect: normal affect Attitude: cooperative Thought process: Normal thought process present Results AMB Hemoglobin A1c AMB Hemoglobin A1c 9.2 % Last Edit by GERRI Tong on 06/05/23 13:45 Results Reviewed Results Reviewed: Laboratory Last Values Hgb A1c (Clinic) 9.2 % (4.0-6.0) H 06/05/23 13:25 Assessment and Plan Assessment & Plan (1) HTN (hypertension): Code(s): I10 - Essential (primary) hypertension Qualifiers: Hypertension type: essential hypertension Qualified Code(s): I10 - Essential (primary) hypertension Plan: patient reports blood pressures have been stable at home. Patient's blood pressure elevated today in office. Reports she has been under lot more stress as of late due to personal/family issues. She reports she is compliant with her blood pressure medication. . With a goal blood pressure to be below 140/90 (2) HLD (hyperlipidemia): Code(s): E78.5 - Hyperlipidemia, unspecified Qualifiers: Hyperlipidemia type: mixed hyperlipidemia Qualified Code(s): E78.2 - Mixed hyperlipidemia Plan: patient has yet to get more recent lipid panel. Advised to get labs done otto. goal LDL is to be below 100 (3) JUAN PABLO (generalized anxiety disorder): Code(s): F41.1 - Generalized anxiety disorder Plan: as above patient does have a benzodiazepine dependence. She has been on all basilar 1 mg b.i.d. for 25 years. she continues to have lot of anxiety about leaving her home. at this time she does not see a therapist or psychiatrist. offered referral to mental health therapy though she declines my offers. (4) DMII (diabetes mellitus, type 2): Code(s): E11.9 - Type 2 diabetes mellitus without complications Qualifiers: Diabetes mellitus complication status: with hyperglycemia Diabetes mellitus group home insulin use: with child and family services worker use Qualified Code(s): E11.65 - Type 2 diabetes mellitus with hyperglycemia; Z79.4 - public health social worker (current) use of insulin Plan: Patient's diabetes suboptimally controlled. Today's A1c at 9.2 from 11.5. 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 She would like to be set up with a continues glucose monitor. She reports blood sugars have been elevated above 230s. Advised to get fasting labs done. Goal A1c is to be below 7.0 (5) Breast cancer screening: Code(s): Z12.39 - Encounter for other screening for malignant neoplasm of breast Qualifiers: Breast cancer screening modality: mammogram Qualified Code(s): Z12.31 - Encounter for screening mammogram for malignant neoplasm of breast Plan: Up-to-date with mammogram. Did have a right benign-appearing cyst. She continues to have right breast pain and would like to see a general surgeon for removal of the cyst. (6) Morbid obesity with BMI of 45.0-49.9, adult: Code(s): E66.01 - Morbid (severe) obesity due to excess calories; Z68.42 - Body mass index [BMI] 45.0-49.9, adult (7) Cyst of right breast: Code(s): N60.01 - Solitary cyst of right breast Plan: As above patient continues to have right breast pain over the last 6 months. Ultrasound and mammogram showing a benign appearing cyst in the right breast. Patient interested in having this cyst drained or removed. (8) Left SNHL: Code(s): H90.5 - Unspecified sensorineural hearing loss Qualifiers: Contralateral hearing status: unspecified Qualified Code(s): H90.5 - Unspecified sensorineural hearing loss Plan: Reports she is having decreased hearing in the left ear. Will send for hearing exam Orders: Orders Microalbumin, Random (w Creat) 06/05/23 E11.65 - Type 2 diabetes mellitus with hyperglycemia, Z79.4 - jail (current) use of insulin Comprehensive [place]. Panel Fast 06/05/23 E11.65 - Type 2 diabetes mellitus with hyperglycemia, Z79.4 - jail (current) use of insulin Lipid Panel 06/05/23 E78.2 - Mixed hyperlipidemia AMB Hemoglobin A1c 06/05/23 E11.9 - Type 2 diabetes mellitus without complications Referrals General Surgery Referral N60.01 - Solitary cyst of right breast Speech and Hearing Referral H90.5 - Unspecified sensorineural hearing loss Medications: New blood-glucose meter,continuous (FreeStyle Martin 3 [place]) As directed 1 ea 1RF E11.65 - Type 2 diabetes mellitus with hyperglycemia, Z79.4 - jail (current) use of insulin blood-glucose sensor (FreeStyle Martin 3 Sensor device) As directed 1 ea 6RF E11.65 - Type 2 diabetes mellitus with hyperglycemia, Z79.4 - public health social worker (current) use of insulin Refilled insulin glargine U-300 conc (Toujeo SoloStar U-300 Insulin) 30 units (0.1 mL) subcut DAILY 30 days 3 mL 3RF E11.9 - Type 2 diabetes mellitus without complications alprazolam 1 mg PO BID 30 days 60 tabs 3RF F41.1 - Generalized anxiety disorder Coding Level of Care Code Est Pt Level 4 (91239) Diagnoses Essential hypertension I10 Hypertension type: essential hypertension Mixed hyperlipidemia E78.2 Hyperlipidemia type: mixed hyperlipidemia JUAN PABLO (generalized anxiety disorder) F41.1 Type 2 diabetes mellitus with hyperglycemia, with long-term current use of insulin E11.65; Z79.4 Diabetes mellitus complication status: with hyperglycemia Diabetes mellitus group home insulin use: with child and family services worker use Encounter for screening mammogram for malignant neoplasm of breast Z12.31 Breast cancer screening modality: mammogram Morbid obesity with BMI of 45.0-49.9, adult E66.01; Z68.42 Cyst of right breast N60.01 Sensorineural hearing loss (SNHL) of left ear, unspecified hearing status on contralateral side H90.5 Contralateral hearing status: unspecified Additional Codes JUAN PABLO-7 Assessment Billing - JUAN PABLO-7 Assessment Tool: JUAN PABLO-7 Assessment [id number] ([id number])
[2023-06-05 13:29] VITALS: BP 168/90; PULSE 60; O2SAT 97; BMI 48.0
== END 2023-06-05 14:22 | disposition home or self-care (01) ==
PROVIDERS: PCP Physician Assistant; Visit Provider Physician Assistant
DX: E11.65 Type 2 diabetes mellitus with hyperglycemia (principal); Z79.4 Long term (current) use of insulin; E66.01 Morbid (severe) obesity due to excess calories; Z68.42 Body mass index [BMI] 45.0-49.9, adult; I10 Essential (primary) hypertension; E78.2 Mixed hyperlipidemia; F41.1 Generalized anxiety disorder; Z12.31 Encounter for screening mammogram for malignant neoplasm of breast; N60.01 Solitary cyst of right breast; H90.5 Unspecified sensorineural hearing loss
CPT/HCPCS: 83036; 99214

== ENCOUNTER 2023-08-26 07:26 | Outpatient (REF) | payer OTHER, SELFPAY ==
--- NOTE | ~2023-08-26 | XR_ITS ---
EXAMINATION: XR LUMBOSACRAL SPINE CLINICAL INFORMATION: Radiculopathy, lumbar region COMPARISON: Lumbar spine 10/16/2009 TECHNIQUE: Three views of the lumbosacral spine. FINDINGS: There are 5 nonrib-bearing lumbar-type vertebral bodies and a transitional lumbosacral vertebral body which for the recent study will be called S1. The bones are diffusely demineralized. The height of the vertebral bodies is well-maintained. There is severe disc space narrowing at L4-L5 and L5-S1 with marginal osteophyte formation. There is multilevel degenerative facet joint disease, most marked at L4-L5 and L5-S1. There is no spondylolisthesis. XR/XR lumbar spine 2-3V IMPRESSION: 1. Degenerative disc disease at L4-L5 and L5-S1. 2. Multilevel degenerative facet joint disease, most marked at L4-L5 and L5-S1.
[2023-08-26 08:37] LABS: Alanine Aminotransferase 13 U/L (0-31); Albumin Level 3.8 g/dL (3.5-5.0); Alkaline Phosphatase 85 U/L (39-117); Anion Gap 17 (12-20); Aspartate Amino Transferase 11 U/L (5-31); Bilirubin Total 0.3 mg/dL (0.0-1.0); Blood Urea Nitrogen 33 mg/dL (9-16); Calcium 9.2 mg/dL (8.4-10.2); Carbon Dioxide 19 mmol/L (22-29); Chloride 107 mmol/L (96-108); Cholesterol 220 mg/dL (<200); Estimated Glomerular Filt Rate 33; Glucose Fasting 276 mg/dL (60-99); HDL Cholesterol 111 mg/dL (>40); LDL Cholesterol Calculated 94 mg/dL (<100); Potassium 5.2 mmol/L (3.3-5.1); Sodium 138 mmol/L (135-145); Total Protein 6.4 g/dL (6.5-8.0); Triglycerides 78 mg/dL (<150)
[2023-08-26 08:49] LABS: Vitamin D 25-OH Total 10.6 ng/mL (>30)
[2023-08-26 09:43] LABS: Microalbum/Creatinine Ratio Ur 334.6 ug/mg cr (<30); Microalbumin Urine > 500.0 mg/L
== END 2023-08-26 07:27 | disposition home or self-care (01) ==
LOC: HO.XRAY 07:26
PROVIDERS: Absent Provider Physician Assistant; PCP Physician Assistant; Visit Provider Nurse Practitioner Family
DX: M51.16 Intervertebral disc disorders with radiculopathy, lumbar region (principal); M51.17 Intervertebral disc disorders with radiculopathy, lumbosacral region; E11.65 Type 2 diabetes mellitus with hyperglycemia; Z79.4 Long term (current) use of insulin; E78.2 Mixed hyperlipidemia; M85.80 Other specified disorders of bone density and structure, unspecified site
CPT/HCPCS: 36415; 72100; 80053; 80061; 82043; 82306; 82570

== ENCOUNTER 2023-09-03 10:39 | Outpatient (AMB) | payer MEDICARE, SELFPAY ==
[2023-09-03 10:46] VITALS: BP 170/90; PULSE 61; O2SAT 99
--- NOTE | 2023-09-03 10:46 | A.OFFPC_ITS ---
Vital Signs 09/03/23 10:46 Height 5 ft 2 in BMI Reason not done Patient refused/unable BP 170/90 H Blood Pressure Location Lt radial Position Sitting Pulse 61 Pulse Source Pulse Oximeter Pulse Oximetry (%) 99 Oxygen Delivery Method Room Air Intake Visit Reasons: f/u DMII Pcb Designer Required: No Accompanied by: Self / Same As Patient Allergies codeine [Codeine] Allergy (Mild, Verified 09/03/23 11:34) NAUSEA/CONFUSION aspirin [From Percodan] Allergy (Unknown, Verified 09/03/23 11:34) Unknown hydrochlorothiazide Allergy (Unknown, Verified 09/03/23 11:34) Unknown lisinopril Allergy (Unknown, Verified 09/03/23 11:34) Unknown oxycodone [Percocet] Allergy (Unknown, Verified 09/03/23 11:34) Unknown Medication List - Last Reconciled 09/03/23 by Shashi Gordon PA-C alprazolam 1 mg PO BID 30 days amlodipine 5 mg PO DAILY blood sugar diagnostic (Up[employer]uch Verio test strips) Testing 3 times a day blood-glucose meter ([employer] Verio Flex Meter) As directed blood-glucose meter,continuous (FreeStyle Martin 3 Everest) As directed blood-glucose sensor (FreeStyle Martin 3 Sensor device) As directed fexofenadine 180 mg PO DAILY PRN insulin aspart U-100 (Novolog FlexPen U-100 Insulin aspart) 14 units (0.14 mL) subcut Q8H 30 days insulin glargine U-300 conc (Toujeo SoloStar U-300 Insulin) 30 units (0.1 mL) subcut DAILY 30 days lancets ([employer] Delica Plus Lancet) Testing 3 times a day omeprazole 20 mg PO DAILY prednisone 10 mg PO DIRECTED 6 days sertraline 200 mg (2 x 100 mg) PO DAILY simvastatin 20 mg PO DAILY sulfamethoxazole-trimethoprim 800-160 mg (Bactrim DS) 1 tab PO BID valsartan-hydrochlorothiazide 320-25 mg 1 tab PO DAILY Tobacco use date assessed: 06/05/23 Fall risk assessment: No Falls in past year Last assessed Fall Risk: 09/03/23 Dental Screening Dental Screen Date: 06/05/23 HPI f/u DMII HPI Details Patient is a 73 yo female here today for follow-up visit. . Eldon has a PMH of DMII, HTN, GERD, depression, renal insufficiency, severe anxiety, OA and fibromyalgia. Concerns--> she reports she has been having a lot of bilateral leg pain, numbness and tingling in her feet and hands and feeling generally weak over the last few months. She has tried a couple of prednisone tapers for her leg pain which temporarily did work. She reports her blood sugars have been a bit more elevated likely due to recent prednisone use. Also was placed on antibiotic recently due to urinary frequency though this was likely due to hyperglycemia secondary to prednisone use. Unfortunately she did have elevated microalbuminuria .. 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 We had a lengthy discussion about benzodiazepine dependence. Patient has been placed on alprazolam over the last 20 years ( by previous PCPs) and has never been able to wean herself off without severe withdrawal symptoms. She does admit to trying other antianxiety meds without much success. I have warned her yet again about her benzo dependence and she understands her risk .. HTN: Patient's blood pressure elevated today in office. Has been under lot of stress as of late. DOes not check blood pressure at home, denies any chest pain, shortness of breath, lower extremity edema. Does report taking her blood pressure medications daily. .. DMII: Her Diabetes has been suboptimally controlled. Patient has lost follow-up with Endocrinology. Was trying to be set up for a continues glucose monitor Today's A1c at 9.5. We had increased her Tresiba up to 30 units. PLAN: Will start GLP 1 for glycemic control and hopes she is able to lose some weight. Also she has significantly elevated microalbuminuria. Likely due to uncontrolled type 2 diabetes Does check her blood sugars at home. Does report Labile blood sugar numbers. Report When she is stressed or not feeling well her sugars will elevate PFSH Surgical History History of skin cancer History of removal of laparoscopic gastric banding device History of lumpectomy of left breast History of tubal ligation History of hernia repair Hx of laparoscopic gastric banding Family History Father No problems noted. Mother No problems noted. Family/Other Breast cancer Social History Housing: Condominium Alcohol intake: never Patient Tobacco Use Status: Never used Tobacco e-Cigarette/Vaping Use: Never Used service: No Current occupational status: retired Cognitive needs: Yes (cane ) Hearing needs: No Vision needs: No Questionnaire PHQ-9 Over the last 2 weeks, how often have you been bothered by any of the following problems? 1. Little interest or pleasure in doing things: more than half the days 2. Feeling down, depressed, or hopeless: nearly every day 3. Trouble falling or staying asleep, or sleeping too much: nearly every day 4. Feeling tired or having little energy: nearly every day 5. Poor appetite or overeating: nearly every day 6. Feeling bad about yourself - or that you are a failure or have let yourself or your family down: nearly every day 7. Trouble concentrating on things, such as reading the newspaper or watching television: not at all 8. Moving or speaking so slowly that other people could have noticed. Or the opposite - being so fidgety or restless that you have been moving around a lot more than usual: not at all 9. Thoughts that you would be better off or of hurting yourself in some way: not at all Total score: 17 Depression Screening Interpretation: Positive Depression Screening Follow-up: Existing condition Depression Screening Done: Yes 62499 - PHQ-9 Billing: Yes Source: Developed by Drs. Chaparro Caro, Berta Aguilera, Vijay Zelaya and colleagues, with an educational jennie from [employer]. Thrive Questionnaire Date Thrive assessed: 06/05/23 AUDIT C Alcohol Use Questionnaire (AUDIT-C) 1. How often do you have a drink containing alcohol?: Never 3. How often do you have six or more drinks on one occasion?: Never Total Score: 0 JUAN PABLO-7 AMB Questionnaire JUAN PABLO-7 Date JUAN PABLO - 7 assessed: 06/05/23 (pt is taking medication ) Source: Developed by Drs. Chaparro Caro, Berta Aguilera, Vijay Zelaya and colleagues, with an educational jennie from [employer]. Review of Systems Const Denies headache(s) Eyes Denies loss of vision ENT Denies vertigo, Denies dizziness, Denies headache(s) and Denies sore throat Card Denies chest pain, Denies leg edema and Denies lightheadedness Resp Denies cough, Denies hemoptysis and Denies wheezing GI Denies abdominal pain, Denies melena, Denies constipation, Denies diarrhea and Denies vomiting Denies urinary frequency, Denies dysuria and Denies urinary urgency Musc Denies arthralgias, Denies joint swelling, Denies numbness and Denies tingling Neuro Denies Abnormal speech present, Denies behavioral changes, Denies vertigo, Denies dizziness, Denies headache(s), Denies loss of vision, Denies memory loss, Denies numbness and Denies tingling Psych Denies anxiety, Denies behavioral changes, Denies depression, Denies memory loss and Denies panic attacks Cain/Lymph Denies easy bleeding and Denies easy bruising Aller/Immun Denies wheezing Physical exam (Primary Care) Vital Signs: Last Vital Signs Pulse 61 09/03/23 10:46 BP 170/90 H 09/03/23 10:46 Pulse Ox 99 09/03/23 10:46 Oxygen Delivery Method Room Air 09/03/23 10:46 Tobacco/Smoking Status: Tobacco use Status Tobacco use date assessed 06/05/23 09/03/23 10:50 Patient Tobacco Use Status Never used Tobacco 09/03/23 10:50 e-Cigarette/Vaping Use Never Used 09/03/23 10:50 PHQ-9: PHQ-9 Score PHQ-9: Total score 17 09/03/23 11:29 Depression Screening Interpretation: Positive Depression Screening Follow-up: Existing condition Thrive Assessment: Date of Thrive Assessment Date Thrive assessed 06/05/23 09/03/23 10:50 Const General: healthy appearing, no acute distress, alert and awake Nutritional Appearance: well nourished Orientation/consciousness: oriented to person, oriented to place and oriented to time HENMT Ears: TM's normal bilaterally General nose exam: Normal nasal mucous membranes and turbinates present Eyes Conjunctivae: conjunctivae normal Sclerae: sclerae normal Pupils: Equal, round and reactive pupils present Neck Neck: Yes no lymphadenopathy and Yes no JVD Thyroid: Thyroid normal Carotids: no bruits Resp Effort & Inspection: normal respiratory effort and not tachypneic Auscultation: no crackles, no rales, no rhonchi and no wheezes Cardio Rate: regular rate Rhythm: regular rhythm Heart sounds: no murmurs and normal S1 and S2 GI Palpation (GI): Soft to palpation, nontender, no hepatomegaly and no splenomegaly Auscultation: normal bowel sounds Skin General skin exam: no rashes or lesions noted and dry skin Neuro General: oriented to person, oriented to place and oriented to time Cranial nerves: Yes Equal, round and reactive pupils present Speech: No Abnormal speech present Gait exam (Neuro): Normal gait present Motor exam (neuro): no tremor noted Extrem Other: LOCALIZED LYMPHEDEMA IN THE THIGHS AND AROUND THE KNEES. Right upper extremity: full ROM Left upper extremity: full ROM Right lower extremity: full ROM and edema Left lower extremity: full ROM and edema Psych Mental Status: mental status grossly normal Speech and movement: Normal speech and movement present Affect: normal affect Attitude: cooperative Thought process: Normal thought process present Results AMB Hemoglobin A1c AMB Hemoglobin A1c 9.5 % Last Edit by GERRI Tong on 09/03/23 11:25 Results Reviewed Results Reviewed: Laboratory Last Values Hgb A1c (Clinic) 9.5 % H 09/03/23 11:23 Assessment and Plan Assessment & Plan (1) DMII (diabetes mellitus, type 2): Code(s): E11.9 - Type 2 diabetes mellitus without complications Qualifiers: Diabetes mellitus complication status: with hyperglycemia Diabetes mellitus termite technician insulin use: with termite technician use Qualified Code(s): E11.65 - Type 2 diabetes mellitus with hyperglycemia; Z79.4 - MCFP (current) use of insulin Plan: Patient's diabetes suboptimally controlled. Most recent A1c elevated above 9. Will start GLP 1 for better glycemic control Of note has been on a few rounds of prednisone recently due to her leg pain. She has lost contact with her manager asset. She would like to be set up with a continues glucose monitor. She reports blood sugars have been elevated above 230s. Advised to get fasting labs done. Goal A1c is to be below 7.0 (2) Lymphedema: Code(s): I89.0 - Lymphedema, not elsewhere classified Plan: Patient patient does have notable localized lymphedema inner thighs and around her knees. Would likely benefit from lymphedema massage and wrappings. Will refer to occupational therapy. (3) HTN (hypertension): Code(s): I10 - Essential (primary) hypertension Qualifiers: Hypertension type: essential hypertension Qualified Code(s): I10 - Essential (primary) hypertension Plan: patient reports blood pressures have been stable at home. Patient's blood pressure elevated today in office. Reports she has been under lot more stress as of late due to personal/family issues. She reports she is compliant with her blood pressure medication. . With a goal blood pressure to be below 140/90 (4) HLD (hyperlipidemia): Code(s): E78.5 - Hyperlipidemia, unspecified Qualifiers: Hyperlipidemia type: mixed hyperlipidemia Qualified Code(s): E78.2 - Mixed hyperlipidemia Plan: Most recent lipid panel showing good control over total cholesterol and LDL. Will continue her current dose of lipid lowering medication. goal LDL is to be below 100 (5) JUAN PABLO (generalized anxiety disorder): Code(s): F41.1 - Generalized anxiety disorder Plan: as above patient does have a benzodiazepine dependence. She has been on all basilar 1 mg b.i.d. for 25 years. she continues to have lot of anxiety about leaving her home. at this time she does not see a therapist or psychiatrist. offered referral to mental health therapy though she declines my offers. (6) CKD stage 3 secondary to diabetes: Code(s): E11.22 - Type 2 diabetes mellitus with diabetic chronic kidney disease; N18.30 - Chronic kidney disease, stage 3 unspecified Plan: Most recent renal function showing creatinine at 1.5 with a reduced GFR. Also has significant microalbuminuria. Of note she did recently take a round of anti biotics Bactrim which may have caused renal insufficiency. Will recheck labs in 8 weeks. 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 Panel Fast 8 Weeks E11.65 - Type 2 diabetes mellitus with hyperglycemia, Z79.4 - watermelon harvesting supervisor (current) use of insulin XR knee LT 3V Today M25.561 - Pain in right knee, M25.562 - Pain in left knee XR knee RT 3V Today M25.561 - Pain in right knee, M25.562 - Pain in left knee Medications: New tizanidine 2 mg PO Q8H PRN 30 tabs 0RF muscle spasticity 10 days I89.0 - Lymphedema, not elsewhere classified semaglutide (Ozempic) for 4 weeks 0.25 mg (0.368 mL) subcut QWEEK 3 mL 1RF 4 weeks E11.65 - Type 2 diabetes mellitus with hyperglycemia, Z79.4 - watermelon harvesting supervisor (current) use of insulin Refilled blood-glucose meter,continuous (FreeStyle Martin 3 Everest) As directed 1 ea 2RF E11.65 - Type 2 diabetes mellitus with hyperglycemia, Z79.4 - MCFP (current) use of insulin blood-glucose sensor (FreeStyle Martin 3 Sensor device) As directed 2 ea 11RF E11.65 - Type 2 diabetes mellitus with hyperglycemia, Z79.4 - watermelon harvesting 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 (current) use of insulin Discontinued sulfamethoxazole-trimethoprim 800-160 mg (Bactrim DS) Discontinued Reason: Doctor's Order 1 tab PO BID 10 tabs 0RF Patient Instructions: Goal: A1c to be below 7.0 Barriers: Adherence to physical activity and healthy eating habits Coding Level of Care Code Est Pt Level 4 (37236) Diagnoses Type 2 diabetes mellitus with hyperglycemia, with long-term current use of insulin E11.65; Z79.4 Diabetes mellitus complication status: with hyperglycemia Diabetes mellitus termite technician insulin use: with termite technician use Lymphedema I89.0 Essential hypertension I10 Hypertension type: essential hypertension Mixed hyperlipidemia E78.2 Hyperlipidemia type: mixed hyperlipidemia JUAN PABLO (generalized anxiety disorder) F41.1 CKD stage 3 secondary to diabetes E11.22; N18.30 Chronic pain of both knees M25.561; M25.562; G89.29 Chronicity: chronic
== END 2023-09-03 11:52 | disposition home or self-care (01) ==
PROVIDERS: PCP Physician Assistant; Visit Provider Physician Assistant
DX: E11.65 Type 2 diabetes mellitus with hyperglycemia (principal); E11.22 Type 2 diabetes mellitus with diabetic chronic kidney disease; Z79.4 Long term (current) use of insulin; N18.30 Chronic kidney disease, stage 3 unspecified; I89.0 Lymphedema, not elsewhere classified; I10 Essential (primary) hypertension; E78.2 Mixed hyperlipidemia; F41.1 Generalized anxiety disorder; M25.561 Pain in right knee; M25.562 Pain in left knee; G89.29 Other chronic pain
CPT/HCPCS: 83036; 99214

== ENCOUNTER 2023-12-18 13:03 | Outpatient (AMB) | payer OTHER, SELFPAY ==
--- NOTE | 2023-12-18 13:02 | MHC.PC.OV ---
Intake Visit Reasons: f/u dmii, renal runction Chief Of Pediatric Urology Required: No Information Interpreted: non-clinical & clinical Packer Operator Automatic: Not Required per policy Accompanied by: Self / Same As Patient Allergies codeine [Codeine] Allergy (Mild, Verified 12/18/23 13:23) NAUSEA/CONFUSION aspirin [From Percodan] Allergy (Unknown, Verified 12/18/23 13:23) Unknown hydrochlorothiazide Allergy (Unknown, Verified 12/18/23 13:23) Unknown lisinopril Allergy (Unknown, Verified 12/18/23 13:23) Unknown oxycodone [Percocet] Allergy (Unknown, Verified 12/18/23 13:23) Unknown Medication List - Last Reconciled 12/18/23 by Shashi Gordon PA-C alprazolam 1 mg PO BID 30 days amlodipine 5 mg PO DAILY [bladder pads As directed] blood sugar diagnostic (Digital [employer] Verio test strips) Testing 3 times a day blood-glucose meter ([employer] Verio Flex Meter) As directed blood-glucose meter,continuous (QUICK SANDS SOLUTIONSStyle Martin 3 [place]) As directed blood-glucose sensor (FreeStyle Martin 3 Sensor device) As directed [disposeable bed pads As directed] fexofenadine 180 mg PO DAILY PRN [incontinent wipes As directed] insulin aspart U-100 (Novolog FlexPen U-100 Insulin aspart) 14 units (0.14 mL) subcut Q8H 30 days insulin glargine U-300 conc (Toujeo SoloStar U-300 Insulin) 30 units (0.1 mL) subcut DAILY lancets (InveniTouch Delica Plus Lancet) Testing 3 times a day nitrofurantoin monohyd/m-cryst 100 mg (Macrobid) 100 mg PO Q12H 5 days omeprazole 20 mg PO DAILY prednisone 10 mg PO DIRECTED 6 days semaglutide (Ozempic) 0.25 mg (0.368 mL) subcut QWEEK 4 weeks sertraline 200 mg (2 x 100 mg) PO DAILY simvastatin 20 mg PO DAILY tizanidine 2 mg PO Q8H PRN 10 days valsartan-hydrochlorothiazide 320-25 mg 1 tab PO DAILY Tobacco use date assessed: 06/05/23 Fall risk assessment: No Falls in past year Last assessed Fall Risk: 12/18/23 Dental Screening Dental Screen Date: 06/05/23 HPI f/u dmii, renal runction HPI Details Patient is a 73 yo female being evaluated today via telephone. Patient has a PMH of DMII, HTN, GERD, depression, renal insufficiency, severe anxiety, OA and fibromyalgia. Concerns--> she reports she has been having a lot of bilateral leg pain, numbness and tingling in her feet and hands and feeling generally weak over the last few months. She reports she continues to bilateral lower extremity swelling to the point did she is having difficulty with ambulating leaving her home. She admits that her sugars have been elevated as well. PLAN: Will start furosemide 20 mg daily to help with her lower extremity swelling. She is willing to start wearing compression socks again as well. As far as her noted hyperglycemia will increase her long-acting insulin and tightened up her sliding scale insulin for better glycemic control. Urinary incontinence: She reports she has been experiencing urinary frequency likely due to her hyperglycemia. She is having multiple urinary incontinence events per day using many briefs in bed pads. She needs scripts for both urinary incontinence pads, bed pads and wipes. We did discuss the need to control her blood sugars to reduce her urinary frequency. CHRONIC MEDICAL CONDITIONS--> .. 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 We had a lengthy discussion about benzodiazepine dependence. Patient has been placed on alprazolam over the last 20 years ( by previous PCPs) and has never been able to wean herself off without severe withdrawal symptoms. She does admit to trying other antianxiety meds without much success. I have warned her yet again about her benzo dependence and she understands her risk .. HTN: Patient's blood pressure elevated today in office. Has been under lot of stress as of late. DOes not check blood pressure at home, denies any chest pain, shortness of breath, lower extremity edema. Does report taking her blood pressure medications daily. .. DMII: Her Diabetes has been suboptimally controlled. Patient has lost follow-up with Endocrinology. Was trying to be set up for a continues glucose monitor Today's A1c at 9.5. We had increased her Tresiba up to 30 units. PLAN: Will start GLP 1 for glycemic control and hopes she is able to lose some weight. Also she has significantly elevated microalbuminuria. Likely due to uncontrolled type 2 diabetes Does check her blood sugars at home. Does report Labile blood sugar numbers. Report When she is stressed or not feeling well her sugars will elevate PFSH Surgical History History of skin cancer History of removal of laparoscopic gastric banding device History of lumpectomy of left breast History of tubal ligation History of hernia repair Hx of laparoscopic gastric banding Family History Father No problems noted. Mother No problems noted. Family/Other Breast cancer Social History Housing: Condominium Alcohol intake: never Patient Tobacco Use Status: Never used Tobacco e-Cigarette/Vaping Use: Never Used service: No Current occupational status: retired Cognitive needs: Yes (cane ) Hearing needs: No Vision needs: No Questionnaire Thrive Questionnaire Date Thrive assessed: 06/05/23 JUAN PABLO-7 AMB Questionnaire JUAN PABLO-7 Date JUAN PABLO - 7 assessed: 06/05/23 (pt is taking medication ) Source: Developed by Drs. Chaparro Caro, Berta Aguilera, iVjay Zelaya and colleagues, with an educational jennie from [employer]. Review of Systems Const Denies headache(s) Eyes Denies loss of vision ENT Denies vertigo, Denies dizziness, Denies headache(s) and Denies sore throat Card Denies chest pain, Denies leg edema and Denies lightheadedness Resp Denies cough, Denies hemoptysis and Denies wheezing GI Denies abdominal pain, Denies melena, Denies constipation, Denies diarrhea and Denies vomiting Details: + urinary frequency Denies urinary frequency, Denies dysuria and Reports urinary urgency Musc Details: + lower extremity swelling Denies arthralgias, Denies joint swelling, Denies numbness and Denies tingling Neuro Denies behavioral changes, Denies vertigo, Denies dizziness, Denies headache(s), Denies loss of vision, Denies memory loss, Denies numbness and Denies tingling Psych Denies anxiety, Denies behavioral changes, Denies depression, Denies memory loss and Denies panic attacks Cain/Lymph Denies easy bleeding and Denies easy bruising Aller/Immun Denies wheezing Physical exam (Primary Care) Tobacco/Smoking Status: Tobacco use Status Tobacco use date assessed 06/05/23 12/18/23 13:03 Patient Tobacco Use Status Never used Tobacco 12/18/23 13:03 e-Cigarette/Vaping Use Never Used 12/18/23 13:03 Thrive Assessment: Date of Thrive Assessment Date Thrive assessed 06/05/23 12/18/23 13:03 Telehealth Telehealth Telehealth Platform: Telephone Location of provider rendering services: practice address Location of patient: address on file Patient Identification confirmed using: Name, : Yes Telehealth method: voice only Patient verbally consented to treatment: Yes Patient verbally consented to billing insurance company: Yes Patient informed of any privacy concerns related to visit: Yes Minutes spent on Phone/Video with Pt.: 11 Assessment and Plan Assessment & Plan (1) DMII (diabetes mellitus, type 2): Code(s): E11.9 - Type 2 diabetes mellitus without complications Qualifiers: Diabetes mellitus complication status: with hyperglycemia Diabetes mellitus prison insulin use: with intermediate manager use Qualified Code(s): E11.65 - Type 2 diabetes mellitus with hyperglycemia; Z79.4 - bed bug exterminator (current) use of insulin Plan: Patient's diabetes suboptimally controlled. Most recent A1c elevated above 9. Will tightened up her sliding scale insulin and increase her long-acting insulin for better glycemic control. She does report having a on a frequency which may be related to her hyperglycemia. Advised to get fasting labs as soon as possible to evaluate her fasting blood sugar and A1c . Goal A1c is to be below 7.0 (2) Urinary incontinence: Code(s): R32 - Unspecified urinary incontinence Qualifiers: Urinary Incontinence type: functional incontinence Qualified Code(s): R39.81 - Functional urinary incontinence Plan: As per HPI (3) Lymphedema: Code(s): I89.0 - Lymphedema, not elsewhere classified Plan: Patient patient does have notable localized lymphedema inner thighs and around her knees. She has been referred to occupational therapy for lymphedema treatment. Orders: Referrals Endocrinology Referral E11.65 - Type 2 diabetes mellitus with hyperglycemia, Z79.4 - bed bug exterminator (current) use of insulin Medications: New furosemide 20 mg PO DAILY 30 tabs 0RF 30 days I89.0 - Lymphedema, not elsewhere classified compression socks, x-large As directed 2 ea 0RF I89.0 - Lymphedema, not elsewhere classified Changed From insulin glargine U-300 conc (Toujeo SoloStar U-300 Insulin) 30 units (0.1 mL) subcut DAILY 9 mL 3RF E11.9 - Type 2 diabetes mellitus without complications To insulin glargine U-300 conc (Toujeo SoloStar U-300 Insulin) 36 units (0.12 mL) subcut DAILY 3.6 mL 3RF 30 days E11.9 - Type 2 diabetes mellitus without complications From insulin aspart U-100 (Novolog FlexPen U-100 Insulin aspart) 14 units (0.14 mL) subcut Q8H 30 days 12.6 mL 3RF E11.9 - Type 2 diabetes mellitus without complications To insulin aspart U-100 (Novolog FlexPen U-100 Insulin aspart) 24 units (0.24 mL) subcut Q8H 21.6 mL 3RF 30 days E11.9 - Type 2 diabetes mellitus without complications From [bladder pads] As directed 1 ea 0RF R39.81 - Functional urinary incontinence To [bladder pads] Need for 300 pads per month 300 ea 0RF R39.81 - Functional urinary incontinence From [incontinent wipes] As directed 100 ea 0RF R39.81 - Functional urinary incontinence To [incontinent wipes] Need for 30 packs per month or max supply 1,000 ea 8RF R39.81 - Functional urinary incontinence Refilled [disposeable bed pads] As directed 100 ea 8RF R39.81 - Functional urinary incontinence Discontinued prednisone see taper instructions Discontinued Reason: Doctor's Order 10 mg PO DIRECTED 6 days 12 tabs 0RF M54.16 - Radiculopathy, lumbar region Coding Level of Care Code Tele Est Pt Level 4 (23932) Diagnoses Type 2 diabetes mellitus with hyperglycemia, with long-term current use of insulin E11.65; Z79.4 Diabetes mellitus complication status: with hyperglycemia Diabetes mellitus intermediate manager insulin use: with intermediate manager use Functional urinary incontinence R39.81 Urinary Incontinence type: functional incontinence Lymphedema I89.0
== END 2023-12-18 15:09 | disposition home or self-care (01) ==
LOC: HO.HMGH 13:03
PROVIDERS: PCP Physician Assistant; Visit Provider Physician Assistant
DX: E11.65 Type 2 diabetes mellitus with hyperglycemia (principal); Z79.4 Long term (current) use of insulin; R39.81 Functional urinary incontinence; I89.0 Lymphedema, not elsewhere classified
CPT/HCPCS: 99442

== ENCOUNTER 2024-09-23 14:47 | Outpatient (AMB) | payer OTHER, SELFPAY ==
--- NOTE | 2024-09-23 14:36 | A.OFFPC_ITS ---
Intake Visit Reasons: Med. Review- A1C NEEDED Battery Vent Plug Inserter Required: No Information Interpreted: non-clinical & clinical Clinical Data Research: Not Required per policy Accompanied by: Daughter Allergies codeine [Codeine] Allergy (Mild, Verified 09/23/24 15:20) NAUSEA/CONFUSION aspirin [From Percodan] Allergy (Unknown, Verified 09/23/24 15:20) Unknown hydrochlorothiazide Allergy (Unknown, Verified 09/23/24 15:20) Unknown lisinopril Allergy (Unknown, Verified 09/23/24 15:20) Unknown oxycodone [Percocet] Allergy (Unknown, Verified 09/23/24 15:20) Unknown Medication List - Last Reconciled 09/23/24 by Shashi Gordon PA-C [12 grab bar As directed] [24 grab bar As directed] alprazolam 1 mg PO BID 30 days amlodipine 5 mg PO DAILY [bladder pads Need for 300 pads per month ] [bladder pads Need for 300 pads per month ] blood sugar diagnostic ([employer] Verio test strips) Testing 3 times a day blood-glucose meter ([employer] Verio Flex Meter) As directed blood-glucose sensor (FreeStyle Martin 3 Sensor device) As directed blood-glucose,dock builder,cont (FreeStyle Martin 3 Merced) As directed compression socks, x-large As directed compression socks, x-large As directed disposable gloves (Disposable Latex-Free Gloves) As directed [disposeable bed pads As directed] [disposeable bed pads As directed] fexofenadine 180 mg PO DAILY PRN furosemide 20 mg PO DAILY [grab bars As directed] [incontinent wipes Need for 30 packs per month or max supply ] [incontinent wipes Need for 30 packs per month or max supply ] insulin aspart U-100 (Novolog FlexPen U-100 Insulin aspart) 24 units (0.24 mL) subcut Q8H 30 days insulin glargine U-300 conc (Toujeo SoloStar U-300 Insulin) 36 units (0.12 mL) subcut DAILY 30 days lancets (Propeller HealthTouch Delica Plus Lancet) Testing 3 times a day menthol-zinc oxide 0.44-20.6 % (Remedy Calazime Intensive Skin Therapy) 1 appl topical BID-QID PRN miscellaneous medical supply As directed nitrofurantoin monohyd/m-cryst 100 mg (Macrobid) 100 mg PO Q12H 5 days nystatin 1 appl topical DAILY 4 weeks omeprazole 20 mg PO DAILY [rollator walker with seat As directed] semaglutide (Ozempic) 0.25 mg (0.368 mL) subcut QWEEK 4 weeks sertraline 200 mg (2 x 100 mg) PO DAILY simvastatin 20 mg PO DAILY tizanidine 2 mg PO Q8H PRN 10 days [transport chair As directed] valsartan-hydrochlorothiazide 320-25 mg 1 tab PO DAILY walker (Ultra-Light Rollator misc) As directed Tobacco use date assessed: 09/23/24 Fall risk assessment: 1 Fall in past year Last assessed Fall Risk: 09/23/24 Dental Screening Dental Screen Date: 09/23/24 Did you have a dental visit in the last 12 months?: Yes Did you have a dental problem in the last 6 months where you did not have access to dental care?: No Was dental information given to patient?: Patient has dentist HPI Med. Review- A1C NEEDED HPI Details Patient is a 74 yo female being evaluated today via telephone. Patient has a PMH of DMII, HTN, GERD, depression, renal insufficiency, severe anxiety, OA and fibromyalgia. Today on the phone we spoke to both patient and patient's daughter. They has been having a lot of difficulty leaving the home due to her lower extremity weakness and swelling. She has not left the home and over 8 months. There is psychiatric issues also involved in the situation though patient seems to have physically declined as per family. They are interested in having a home visiting nurse though due home safety eval and give some education on disease, physical therapy to help with lower extremity strengthening and balance. Due to her reports of lower extremity edema that seems to has been worsening and lower extremity weakness will hold off on amlodipine. Urinary incontinence: She reports she has been experiencing urinary frequency likely due to her hyperglycemia. She is having multiple urinary incontinence events per day using many briefs in bed pads. She needs scripts for both urinary incontinence pads, bed pads and wipes. We did discuss the need to control her blood sugars to reduce her urinary frequency. CHRONIC MEDICAL CONDITIONS--> .. 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 We had a lengthy discussion about benzodiazepine dependence. Patient has been placed on alprazolam over the last 20 years ( by previous PCPs) and has never been able to wean herself off without severe withdrawal symptoms. She does admit to trying other antianxiety meds without much success. I have warned her yet again about her benzo dependence and she understands her risk .. HTN: Patient's blood pressure elevated today in office. Has been under lot of stress as of late. DOes not check blood pressure at home, denies any chest pain, shortness of breath, lower extremity edema. Does report taking her blood pressure medications daily. .. DMII: Her Diabetes has been suboptimally controlled. Patient has lost follow-up with Endocrinology. Was trying to be set up for a continues glucose monitor Today's A1c at 9.5. We had increased her Tresiba up to 30 units. PLAN: Will start GLP 1 for glycemic control and hopes she is able to lose some weight. Also she has significantly elevated microalbuminuria. Likely due to uncontrolled type 2 diabetes Does check her blood sugars at home. Does report Labile blood sugar numbers. Report When she is stressed or not feeling well her sugars will elevate [facility] Surgical History History of skin cancer History of removal of laparoscopic gastric banding device History of lumpectomy of left breast History of tubal ligation History of hernia repair Hx of laparoscopic gastric banding Family History Father No problems noted. Mother No problems noted. Family/Other Breast cancer Social History Housing: Condominium Alcohol intake: never Patient Tobacco Use Status: Never used Tobacco e-Cigarette/Vaping Use: Never Used service: No Current occupational status: retired Cognitive needs: Yes (cane ) Hearing needs: No Vision needs: No Questionnaire PHQ-9 Over the last 2 weeks, how often have you been bothered by any of the following problems? 1. Little interest or pleasure in doing things: more than half the days 2. Feeling down, depressed, or hopeless: more than half the days 3. Trouble falling or staying asleep, or sleeping too much: nearly every day 4. Feeling tired or having little energy: nearly every day 5. Poor appetite or overeating: nearly every day 6. Feeling bad about yourself - or that you are a failure or have let yourself or your family down: nearly every day 7. Trouble concentrating on things, such as reading the newspaper or watching television: not at all 8. Moving or speaking so slowly that other people could have noticed. Or the opposite - being so fidgety or restless that you have been moving around a lot more than usual: nearly every day 9. Thoughts that you would be better off or of hurting yourself in some way: not at all Total score: 19 Depression Screening Interpretation: Positive Depression Screening Follow-up: Existing condition Depression Screening Done: Yes 67746 - PHQ-9 Billing: Yes Source: Developed by Drs. Chaparro Caro, Berta Aguilera, Vijay Zelaya and colleagues, with an educational jennie from [employer]. Thrive Questionnaire Date Thrive assessed: 09/23/24 I am a: Patient What is your living situation today?: I have a steady place to live Within the past 12 months, did the food you bought not last and you didn't have the money to get more?: Never true Within the past 12 months, did you worry whether your food would run out before you got money to buy more?: Never true Do you have trouble paying for medicines?: No Do you have trouble getting transportation to medical appointments?: No Do you have trouble paying your heating and electricity bill?: No Do you have trouble taking care of your child, family member or friend?: No Do you have trouble with day-to-day activities such as bathing, preparing meals, shopping, managing finances, etc.?: No Are you currently unemployed and looking for a job?: No Are you interested in more education?: No Please select the resources that you would like help with: None Currently or been in a relationship where the following occur: No concerns reported THRIVE Score: 0 AUDIT C Alcohol Use Questionnaire (AUDIT-C) 1. How often do you have a drink containing alcohol?: Never 3. How often do you have six or more drinks on one occasion?: Never Total Score: 0 JUAN PABLO-7 AMB Questionnaire JUAN PABLO-7 Date JUAN PABLO - 7 assessed: 09/23/24 Feeling nervous, anxious, or on edge: 3 = Nearly every day Not being able to stop or control worryin = Nearly every day Worrying too much about different things: 3 = Nearly every day Trouble relaxin = Not at all Being so restless that it is hard to sit still: 0 = Not at all Becoming easily annoyed or irritable: 2 = More than half the days Feeling afraid as if something awful might happen: 0 = Not at all Total JUAN PABLO-7 score (0-4 normal; 5-9 mild; 10-14 moderate; 15-21 severe): 11 Source: Developed by Drs. Chaparro Caro, Berta Aguilera, Vijay Zelaya and colleagues, with an educational jennie from [employer]. JUAN PABLO-7 Assessment Billing JUAN PABLO-7 Assessment Tool: JUAN PABLO-7 Assessment 03126 Review of Systems Const Denies headache(s) Eyes Denies loss of vision ENT Denies vertigo, Denies dizziness, Denies headache(s) and Denies sore throat Card Denies chest pain, Denies leg edema and Denies lightheadedness Resp Denies cough, Denies hemoptysis and Denies wheezing GI Denies abdominal pain, Denies melena, Denies constipation, Denies diarrhea and Denies vomiting Denies urinary frequency, Denies dysuria and Denies urinary urgency Musc Denies arthralgias, Denies joint swelling, Denies numbness and Denies tingling Neuro Denies behavioral changes, Denies vertigo, Denies dizziness, Denies headache(s), Denies loss of vision, Denies memory loss, Denies numbness and Denies tingling Psych Denies anxiety, Denies behavioral changes, Denies depression, Denies memory loss and Denies panic attacks Cain/Lymph Denies easy bleeding and Denies easy bruising Aller/Immun Denies wheezing Physical exam (Primary Care) Tobacco/Smoking Status: Tobacco use Status Tobacco use date assessed 09/23/24 09/23/24 14:44 Patient Tobacco Use Status Never used Tobacco 09/23/24 14:37 e-Cigarette/Vaping Use Never Used 09/23/24 14:37 PHQ-9: PHQ-9 Score PHQ-9: Total score 19 09/23/24 14:44 Depression Screening Interpretation: Positive Depression Screening Follow-up: Existing condition Thrive Assessment: Date of Thrive Assessment Date Thrive assessed 09/23/24 09/23/24 14:44 Currently or been in a relationship where the following occur: No concerns reported Telehealth Telehealth Telehealth Platform: Telephone Location of provider rendering services: practice address Location of patient: address on file Patient Identification confirmed using: Name, : Yes Telehealth method: voice only Patient verbally consented to treatment: Yes Patient verbally consented to billing insurance company: Yes Patient informed of any privacy concerns related to visit: Yes Minutes spent on Phone/Video with Pt.: 25 Coding Level of Care Code Tele Est Pt Level 4 (11868) Diagnoses Physical deconditioning R53.81 Type 2 diabetes mellitus with hyperglycemia, with long-term current use of insulin E11.65; Z79.4 Diabetes mellitus senior living insulin use: with joint terminal attack controller use Diabetes mellitus complication status: with hyperglycemia Mixed hyperlipidemia E78.2 Hyperlipidemia type: mixed hyperlipidemia Essential hypertension I10 Hypertension type: essential hypertension CKD stage 3 secondary to diabetes E11.22; N18.30 Weakness of both lower extremities R29.898 Laterality: bilateral Additional Codes JUAN PABLO-7 Assessment Billing - JUAN PABLO-7 Assessment Tool: JUAN PABLO-7 Assessment 99018 ([id number]) PHQ-9 - 16039 - PHQ-9 Billing: Yes ([id number]) Assessment & Plan Assessment & Plan (1) Physical deconditioning: Code(s): R53.81 - Other malaise Category: Medical Plan: Per conversation on the phone with patient and her daughter she has not been able to leave her home since last year. She has been having swelling in her legs and weakness in her legs and frequent falls. She is considered homebound. She had they are asking for home visiting nurse, OT and PT that come help do a home safety eval and trial labs. She is in great need of lower extremity strengthening and balance training. 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 Will add on Ozempic 0.5 mg weekly to help with weight reduction and glycemic control. She will continue her short-acting and long-acting insulins as well. Again goal A1c is to be below 7.0 (3) HLD (hyperlipidemia): Code(s): E78.5 - Hyperlipidemia, unspecified Category: Medical Qualifiers: Hyperlipidemia type: mixed hyperlipidemia Qualified Code(s): E78.2 - Mixed hyperlipidemia Plan: Patient has a history of hyperlipidemia, continues on statin therapy. Will try to recheck her lipid panel to ensure normal. Goal LDL is to be below 100 (4) HTN (hypertension): Code(s): I10 - Essential (primary) hypertension Category: Medical Qualifiers: Hypertension type: essential hypertension Qualified Code(s): I10 - Essential (primary) hypertension Plan: Patient continues on valsartan hydrochlorothiazide. Has been on amlodipine for quite some time, will hold amlodipine due to reports of lower extremity swelling as this may be playing a role. (5) CKD stage 3 secondary to diabetes: Code(s): E11.22 - Type 2 diabetes mellitus with diabetic chronic kidney disease; N18.30 - Chronic kidney disease, stage 3 unspecified Category: Medical Plan: Has been difficult to get labs as she has not been able to leave her home. Will try to have [facility] draw labs (6) Lower extremity weakness: Code(s): R29.898 - Other symptoms and signs involving the musculoskeletal system Category: Medical Qualifiers: Laterality: bilateral Qualified Code(s): R29.898 - Other symptoms and signs involving the musculoskeletal system Plan: Having lower extremity edema that seems to be worsening over left lower extre mity. Orders: Orders Comprehensive [place]. 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 Lipid Panel Today E78.2 - Mixed hyperlipidemia [facility]errals [facility] Referral E11.65 - Type 2 diabetes mellitus with hyperglycemia, I89.0 - Lymphedema, not elsewhere classified, R53.81 - Other malaise, Z79.4 - assisted (current) use of insulin Medications: New chair, wheel (Wheel chair) bariatrics wheel chair 1 ea 0RF M54.16 - Radiculopathy, lumbar region, R29.898 - Other symptoms and signs involving the musculoskeletal system, R53.81 - Other malaise Changed From semaglutide (Ozempic) for 4 weeks 0.25 mg (0.368 mL) subcut QWEEK 4 weeks 3 mL 1RF E11.65 - Type 2 diabetes mellitus with hyperglycemia, Z79.4 - 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 To semaglutide (Ozempic) for 4 weeks 0.5 mg (0.736 mL) subcut QWEEK 4 weeks 3 mL 3RF E11.65 - Type 2 diabetes mellitus with hyperglycemia, Z79.4 - assisted (current) use of insulin Refilled valsartan-hydrochlorothiazide 320-25 mg 1 tab PO DAILY 90 tabs 3RF I10 - Essential (primary) hypertension simvastatin 20 mg PO DAILY 90 tabs 3RF E78.5 - Hyperlipidemia, unspecified [grab bars] As directed 2 ea 0RF G89.29 - Other chronic pain, M25.561 - Pain in right knee, M25.562 - Pain in left knee, M54.16 - Radiculopathy, lumbar region alprazolam 1 mg PO BID 30 days 60 tabs 3RF F41.1 - Generalized anxiety disorder insulin glargine U-300 conc ([employer] SoloStar U-300 Insulin) 36 units (0.12 mL) subcut DAILY 30 days 3.6 mL 3RF E11.9 - Type 2 diabetes mellitus without complications omeprazole 20 mg PO DAILY 30 caps 3RF K21.9 - Gastro-esophageal reflux disease without esophagitis sertraline 200 mg (2 x 100 mg) PO DAILY 180 tabs 3RF [transport chair] As directed 1 ea 0RF G89.29 - Other chronic pain, M25.561 - Pain in right knee, M25.562 - Pain in left knee, M54.16 - Radiculopathy, lumbar region Discontinued nitrofurantoin monohyd/m-cryst 100 mg (Macrobid) must administer with a meal/food Discontinued Reason: Duplicate 100 mg PO Q12H 5 days 10 caps 0RF On Hold amlodipine Hold Comment: Doctor's Order 5 mg PO DAILY 90 tabs 3RF I10 - Essential (primary) hypertension
== END 2024-09-23 16:47 | disposition home or self-care (01) ==
PROVIDERS: PCP Physician Assistant; Visit Provider Physician Assistant
DX: I12.9 Hypertensive chronic kidney disease with stage 1 through stage 4 chronic kidney disease, or unspecified chronic kidney disease (principal); E11.65 Type 2 diabetes mellitus with hyperglycemia; Z79.4 Long term (current) use of insulin; E11.22 Type 2 diabetes mellitus with diabetic chronic kidney disease; N18.30 Chronic kidney disease, stage 3 unspecified; R53.81 Other malaise; E78.2 Mixed hyperlipidemia; R29.898 Other symptoms and signs involving the musculoskeletal system

== ENCOUNTER → 2024-09-23 14:47 | Outpatient (BNVA) | payer OTHER, SELFPAY | PROVIDERS: PCP Physician Assistant; Visit Provider Physician Assistant | DX: E11.22 Type 2 diabetes mellitus with diabetic chronic kidney disease (principal); E11.65 Type 2 diabetes mellitus with hyperglycemia; I12.9 Hypertensive chronic kidney disease with stage 1 through stage 4 chronic kidney disease, or unspecified chronic kidney disease; N18.30 Chronic kidney disease, stage 3 unspecified; R29.898 Other symptoms and signs involving the musculoskeletal system; K21.9 Gastro-esophageal reflux disease without esophagitis; F32.A Depression, unspecified; F41.9 Anxiety disorder, unspecified; M79.7 Fibromyalgia; R32 Unspecified urinary incontinence; R53.81 Other malaise; I89.0 Lymphedema, not elsewhere classified; E78.2 Mixed hyperlipidemia; G89.29 Other chronic pain; M25.561 Pain in right knee; M25.562 Pain in left knee; M54.16 Radiculopathy, lumbar region; Z79.4 Long term (current) use of insulin | CPT/HCPCS: 96127 ==

== ENCOUNTER 2025-02-28 14:59 | Outpatient (AMB) | payer OTHER, SELFPAY ==
--- NOTE | 2025-02-28 15:48 | A.OFFPC_ITS ---
Vital Signs 02/28/25 15:50 Height 5 ft 2 in BMI Reason not done Patient refused/unable BP 130/62 Blood Pressure Location Lt brachial Position Sitting Pulse 61 Pulse Source Pulse Oximeter Temp 97.5 F Temp Source Temporal Artery Scan Pulse Oximetry (%) 98 Oxygen Delivery Method Room Air Intake Visit Reasons: HTN, DM NEED A1C Intake Note: Patient is here to follow up on HTN, DM. Gas Mask Assembler Required: No Back Order Clerk: Present Accompanied by: Daughter Allergies codeine (Codeine) Allergy (Mild, Verified 02/28/25 16:16) NAUSEA/CONFUSION aspirin (From Percodan) Allergy (Unknown, Verified 02/28/25 16:16) Unknown hydrochlorothiazide Allergy (Unknown, Verified 02/28/25 16:16) Unknown lisinopril Allergy (Unknown, Verified 02/28/25 16:16) Unknown oxycodone (Percocet) Allergy (Unknown, Verified 02/28/25 16:16) Unknown Medication List - Last Reconciled 02/28/25 by Shashi Gordon PA-C [12 grab bar As directed] [24 grab bar As directed] alprazolam 1 mg PO BID 30 days amlodipine 5 mg PO DAILY Held on 09/23/24. Instructions: Doctor's Order [back cushion for wheelchair As directed] [bladder pads Need for 300 pads per month ] [bladder pads Need for 300 pads per month ] blood sugar diagnostic (OneTouch Verio test strips) Testing 3 times a day blood-glucose meter (OneTouch Verio Flex Meter) As directed blood-glucose sensor (FreeStyle Martin 3 Sensor device) As directed blood-glucose,nutrition specialist,cont (FreeStyle Martin 3 [place]) As directed chair, wheel (Wheel chair) bariatrics wheel chair compression socks, x-large As directed compression socks, x-large As directed disposable gloves (Disposable Latex-Free Gloves) As directed [disposeable bed pads As directed] [disposeable bed pads As directed] fexofenadine 180 mg PO DAILY PRN furosemide 20 mg PO DAILY [grab bars As directed] [incontinent wipes Need for 30 packs per month or max supply ] [incontinent wipes Need for 30 packs per month or max supply ] insulin aspart U-100 (Novolog FlexPen U-100 Insulin aspart) 24 units (0.24 mL) subcut Q8H 30 days insulin glargine U-300 conc (Toujeo SoloStar U-300 Insulin) 36 units (0.12 mL) subcut DAILY 30 days lancets (OneTouch Delica Plus Lancet) Testing 3 times a day menthol-zinc oxide 0.44-20.6 % (Remedy Haylee Intensive Skin Therapy) 1 appl topical BID-QID PRN miscellaneous medical supply As directed miscellaneous medical supply As directed nystatin 1 appl topical DAILY 4 weeks omeprazole 20 mg PO DAILY [rollator walker with seat As directed] semaglutide (Ozempic) 0.5 mg (0.736 mL) subcut QWEEK 4 weeks sertraline 200 mg (2 x 100 mg) PO DAILY simvastatin 20 mg PO DAILY [transport chair As directed] valsartan-hydrochlorothiazide 320-25 mg 1 tab PO DAILY walker (Ultra-Light Rollator misc) As directed Tobacco use date assessed: 02/28/25 Fall risk assessment: 1 Fall in past year Last assessed Fall Risk: 02/28/25 Dental Screening Dental Screen Date: 09/23/24 HPI HTN, DM NEED A1C HPI Details Patient is a 74 yo female here today for follow-up visit Patient has a PMH of DMII, HTN, GERD, depression, renal insufficiency, severe anxiety, OA and fibromyalgia. Today presents with her daughter at today's office visit Patient and family are interested in getting SENIOR SQL SERVER DBA hours and perhaps a visiting nurse to come do home safety eval and occupational therapy/physical therapy to helpr extremity strengthening. FORTUNATELY SHE HAS RECEIVED THE WHEELCHAIR AND SAFETY GRAB BARS FOR HER BATHROOM YOUR INSURANCE.. Lymphedema: They has been having a lot of difficulty leaving the home due to her lower extremity weakness and swelling. She has not left the home and over 8-10 months. Since starting GLP 1 therapy her lymphedema has been gotten a bit better though continues to have small pustules over her lower extremities that she cleans on her own. There is psychiatric issues also involved in the situation though patient seems to have physically declined as per family. They are interested in having a home visiting nurse though due home safety eval and give some education on disease, physical therapy to help with lower extremity strengthening and balance. Urinary incontinence: She continues to have urinary incontinence which seems to be functional incontinence has she has not been able to get up and walk much. We did discuss starting oxybutynin though due to potential side effects we will hold off on this.. She is having multiple urinary incontinence events per day using many briefs in bed pads. She needs scripts for both urinary incontinence pads, bed pads and wipes. We did discuss the need to control her blood sugars to reduce her urinary frequency. .. 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 We had a lengthy discussion about benzodiazepine dependence. Patient has been placed on alprazolam over the last 20 years ( by previous PCPs) and has never been able to wean herself off without severe withdrawal symptoms. She does admit to trying other antianxiety meds without much success. I have warned her yet again about her benzo dependence and she understands her risk .. HTN: Patient's blood pressure today in office acceptable. .. Type 2 diabetes: She has type 2 diabetes, and her last A1c was 9.5. Today's A1c much improved at 6.2. She was started on Ozempic and has experienced significant weight loss. She reports gastrointestinal upset for one to two days after her weekly injection. Her insulin regimen includes Toujeo, which has been reduced to 28 units daily in the morning, and a short-acting insulin taken with meals. She experiences occasional low blood sugar, particularly if she does not have a snack before bed. Of note does have a history of microalbuminuria likely secondary to her type 2 diabetes thus will recheck and consider Nephrology evaluation. [facility] Surgical History History of skin cancer History of removal of laparoscopic gastric banding device History of lumpectomy of left breast History of tubal ligation History of hernia repair Hx of laparoscopic gastric banding Family History Father No problems noted. Mother No problems noted. Family/Other Breast cancer Social History Housing: Condominium Alcohol intake: never Patient Tobacco Use Status: Never used Tobacco e-Cigarette/Vaping Use: Never Used service: No Current occupational status: retired Cognitive needs: Yes (walker, Wheelchair) Hearing needs: No Vision needs: No Questionnaire PHQ-9 Over the last 2 weeks, how often have you been bothered by any of the following problems? 1. Little interest or pleasure in doing things: more than half the days 2. Feeling down, depressed, or hopeless: nearly every day 3. Trouble falling or staying asleep, or sleeping too much: nearly every day 4. Feeling tired or having little energy: nearly every day 5. Poor appetite or overeating: several days 6. Feeling bad about yourself - or that you are a failure or have let yourself or your family down: nearly every day 7. Trouble concentrating on things, such as reading the newspaper or watching television: nearly every day 8. Moving or speaking so slowly that other people could have noticed. Or the opposite - being so fidgety or restless that you have been moving around a lot more than usual: several days 9. Thoughts that you would be better off or of hurting yourself in some way: several days Total score: 20 Depression Screening Interpretation: Positive Depression Screening Follow-up: Existing condition and Declines treatment Depression Screening Done: Yes 61746 - PHQ-9 Billing: Yes Source: Developed by Drs. Chaparro Caro, Berta Aguilera, Vijay Zelaya and colleagues, with an educational jennie from [employer]. Thrive Questionnaire Date Thrive assessed: 09/23/24 I am a: Patient What is your living situation today?: I have a steady place to live Within the past 12 months, did the food you bought not last and you didn't have the money to get more?: Never true Within the past 12 months, did you worry whether your food would run out before you got money to buy more?: Never true Do you have trouble paying for medicines?: No Do you have trouble getting transportation to medical appointments?: No Do you have trouble paying your heating and electricity bill?: No Do you have trouble taking care of your child, family member or friend?: No Do you have trouble with day-to-day activities such as bathing, preparing meals, shopping, managing finances, etc.?: Yes Are you currently unemployed and looking for a job?: No Are you interested in more education?: No Please select the resources that you would like help with: Food, Paying for medicine, Transportation, Utilities, Care for elder or disabled and Daily support Currently or been in a relationship where the following occur: I choose not to answer THRIVE Score: 0 AUDIT C Alcohol Use Questionnaire (AUDIT-C) 1. How often do you have a drink containing alcohol?: Never Total Score: 0 JUAN PABLO-7 AMB Questionnaire JUAN PABLO-7 Date JUAN PABLO - 7 assessed: 09/23/24 Feeling nervous, anxious, or on edge: 3 = Nearly every day Not being able to stop or control worryin = Nearly every day Worrying too much about different things: 3 = Nearly every day Trouble relaxin = Nearly every day Being so restless that it is hard to sit still: 3 = Nearly every day Becoming easily annoyed or irritable: 3 = Nearly every day Feeling afraid as if something awful might happen: 3 = Nearly every day Total JUAN PABLO-7 score (0-4 normal; 5-9 mild; 10-14 moderate; 15-21 severe): 21 Source: Developed by Drs. Chaparro Caro, Berta Aguilera, Vijay Zelaya and colleagues, with an educational jennie from [employer]. JUAN PABLO-7 Assessment Billing JUAN PABLO-7 Assessment Tool: JUAN PABLO-7 Assessment 20059 Review of Systems Const Denies headache(s) Eyes Denies loss of vision ENT Denies vertigo, Denies dizziness, Denies headache(s) and Denies sore throat Card Denies chest pain, Denies leg edema and Denies lightheadedness Resp Denies cough, Denies hemoptysis and Denies wheezing GI Denies abdominal pain, Denies melena, Denies constipation, Denies diarrhea and Denies vomiting Denies urinary frequency, Denies dysuria and Denies urinary urgency Musc Denies arthralgias, Denies joint swelling, Denies numbness and Denies tingling Neuro Denies Abnormal speech present, Denies behavioral changes, Denies vertigo, Denies dizziness, Denies headache(s), Denies loss of vision, Denies memory loss, Denies numbness and Denies tingling Psych Denies anxiety, Denies behavioral changes, Denies depression, Denies memory loss and Denies panic attacks Cain/Lymph Denies easy bleeding and Denies easy bruising Aller/Immun Denies wheezing Physical exam (Primary Care) Vital Signs: Last Vital Signs Temp 97.5 F 02/28/25 15:50 Pulse 61 02/28/25 15:50 BP 130/62 02/28/25 15:50 Pulse Ox 98 02/28/25 15:50 Oxygen Delivery Method Room Air 02/28/25 15:50 BMI Assessment/Plan discussion: High BMI High, discussed plan: lifestyle, weight reduction, dietary and physical activity Tobacco/Smoking Status: Tobacco use Status Tobacco use date assessed 02/28/25 02/28/25 16:03 Patient Tobacco Use Status Never used Tobacco 02/28/25 16:03 e-Cigarette/Vaping Use Never Used 02/28/25 16:03 PHQ-9: PHQ-9 Score PHQ-9: Total score 20 02/28/25 16:18 Depression Screening Interpretation: Positive Depression Screening Follow-up: Existing condition and Declines treatment Thrive Assessment: Date of Thrive Assessment Date Thrive assessed 09/23/24 02/28/25 16:03 Currently or been in a relationship where the following occur: I choose not to answer Const Other: MORBIDLY OBESE SITTING COMFORTABLY IN A WHEELCHAIR General: healthy appearing, no acute distress, alert and awake Nutritional Appearance: well nourished Orientation/consciousness: oriented to person, oriented to place and oriented to time HENMT Ears: TM's normal bilaterally General nose exam: Normal nasal mucous membranes and turbinates present Eyes Conjunctivae: conjunctivae normal Sclerae: sclerae normal Pupils: Equal, round and reactive pupils present Neck Neck: Yes no lymphadenopathy and Yes no JVD Thyroid: Thyroid normal Carotids: no bruits Resp Effort & Inspection: normal respiratory effort and not tachypneic Auscultation: no crackles, no rales, no rhonchi and no wheezes Cardio Rate: regular rate Rhythm: regular rhythm Heart sounds: no murmurs and normal S1 and S2 GI Palpation (GI): Soft to palpation, nontender, no hepatomegaly and no splenomegaly Auscultation: normal bowel sounds Skin General skin exam: no rashes or lesions noted and dry skin Neuro General: oriented to person, oriented to place and oriented to time Cranial nerves: Yes Equal, round and reactive pupils present Speech: No Abnormal speech present Gait exam (Neuro): Normal gait present Motor exam (neuro): no tremor noted Extrem Other: BILATERAL LOWER EXTREMITY LYMPHEDEMA NOTED. SMALL AREAS OF PUSTULES OVER THE ANTERIOR ASPECT OF HER SHINS. Right upper extremity: full ROM Left upper extremity: full ROM Right lower extremity: full ROM; no edema Left lower extremity: full ROM; no edema Psych Mental Status: mental status grossly normal Speech and movement: Normal speech and movement present Affect: normal affect Attitude: cooperative Thought process: Normal thought process present Results AMB Hemoglobin A1c AMB Hemoglobin A1c 6.1 % Last Edit by KELLIE Vieira on 02/28/25 16:20 Results Reviewed Results Reviewed: Laboratory Last Values Hgb A1c (Clinic) 6.1 % (4.0-6.0) H 02/28/25 15:47 Coding Level of Care Code Est Pt Level 4 (29477) Diagnoses Type 2 diabetes mellitus with hyperglycemia, with long-term current use of insulin E11.65; Z79.4 Diabetes mellitus complication status: with hyperglycemia Diabetes mellitus care home insulin use: with care home use Lymphedema of lower extremity I89.0 Primary osteoarthritis of right knee M17.11 Osteoarthritis type: primary Physical deconditioning R53.81 Mixed hyperlipidemia E78.2 Hyperlipidemia type: mixed hyperlipidemia Essential hypertension I10 Hypertension type: essential hypertension CKD stage 3 secondary to diabetes E11.22; N18.30 Dermatitis L30.9 MDD (major depressive disorder), recurrent episode, moderate F33.1 JUAN PABLO (generalized anxiety disorder) F41.1 Additional Codes PHQ-9 - 29566 - PHQ-9 Billing: Yes ([id number]) JUAN PABLO-7 Assessment Billing - JUAN PABLO-7 Assessment Tool: JUAN PABLO-7 Assessment 99285 ([id number]) Assessment & Plan Assessment & Plan (1) DMII (diabetes mellitus, type 2): Code(s): E11.9 - Type 2 diabetes mellitus without complications Category: Medical Qualifiers: Diabetes mellitus complication status: with hyperglycemia Diabetes 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 Although an alternative, Mounjaro, was discussed, the decision was made to continue Ozempic given its effectiveness. To mitigate hypoglycemia and promote further weight loss, her long-acting insulin (Toujeo) will be decreased from 28 units to 20 units daily. Again goal A1c is to be below 7.0 (2) Lymphedema of lower extremity: Code(s): I89.0 - Lymphedema, not elsewhere classified Category: Medical Plan: To address the bilateral lower extremity lymphedema, a referral will be made to the vascular lymphedema clinic. A prescription for a topical antibiotic ointment will be provided to apply to the affected skin to prevent infection. For her knee instability, a paper script will be provided for a knee brace. An x-ray of her recently injured wrist will be ordered. A new referral will be sent for home physical and occupational therapy to improve strength and mobility, with an emphasis on counteracting potential muscle loss from Ozempic. (3) Osteoarthritis of right knee: Code(s): M17.11 - Unilateral primary osteoarthritis, right knee Category: Medical Qualifiers: Osteoarthritis type: primary Qualified Code(s): M17.11 - Unilateral primary osteoarthritis, right knee Plan: As above Patient reports weakness in her right knee in his interested in getting a knee brace to help her with stability. She is very motivated to start walking again and being less dependent on her wheelchair. (4) Physical deconditioning: Code(s): R53.81 - Other malaise Category: Medical Plan: Per conversation on the phone with patient and her daughter she has not been able to leave her home since last year. She has been having swelling in her legs and weakness in her legs and frequent falls. She is considered homebound. She had they are asking for home visiting nurse, OT and PT that come help do a home safety eval and trial labs. She is in great need of lower extremity strengthening and balance training. (5) HLD (hyperlipidemia): Code(s): E78.5 - Hyperlipidemia, unspecified Category: Medical Qualifiers: Hyperlipidemia type: mixed hyperlipidemia Qualified Code(s): E78.2 - Mixed hyperlipidemia Plan: Patient has a history of hyperlipidemia, continues on statin therapy. Will try to recheck her lipid panel to ensure normal. Goal LDL is to be below 100 (6) HTN (hypertension): Code(s): I10 - Essential (primary) hypertension Category: Medical Qualifiers: Hypertension type: essential hypertension Qualified Code(s): I10 - Essential (primary) hypertension Plan: Patient continues on valsartan hydrochlorothiazide. Patient's blood pressure acceptable today in office. We have discontinuing amlodipine due to lower extremity edema. (7) CKD stage 3 secondary to diabetes: Code(s): E11.22 - Type 2 diabetes mellitus with diabetic chronic kidney disease; N18.30 - Chronic kidney disease, stage 3 unspecified Category: Medical Plan: Has been difficult to get labs as she has not been able to leave her home. Will try to have [facility] draw labs (8) Dermatitis: Code(s): L30.9 - Dermatitis, unspecified Category: Medical Plan: As above patient will receive antibiotic ointment for pustules and open wounds over lower extremities. I suspect her skin manifestations of her lower extremities too much improved with treatment her lymphedema of her lower extremities. (9) MDD (major depressive disorder), recurrent episode, moderate: Code(s): F33.1 - Major depressive disorder, recurrent, moderate Category: Medical Plan: Patient's PHQ-9 score positive for moderate depression which has been existing condition for her. She is not interested in seeing a mental health therapist at this time. She continues on high dose of sertraline which has helped her manage her mental health. Since being on a GLP 1 in her mood Most of her depression comes from her poor health. She does have family support around her at this time. (10) JUAN PABLO (generalized anxiety disorder): Code(s): F41.1 - Generalized anxiety disorder Category: Medical Plan: Patient's JUAN PABLO-7 score positive for anxiety which has been existing condition for her. She continues on SSRI therapy and daily use of alprazolam for many many years. Orders: Orders AMB Hemoglobin A1c 02/28/25 E11.65 - Type 2 diabetes mellitus with hyperglycemia, Z79.4 - longterm (current) use of insulin Referrals [facility] Referral E11.22 - Type 2 diabetes mellitus with diabetic chronic kidney disease, I89.0 - Lymphedema, not elsewhere clas sified, N18.30 - Chronic kidney disease, stage 3 unspecified, R53.81 - Other malaise Vascular Surgery Referral I89.0 - Lymphedema, not elsewhere classified Medications: New [Right knee brace] As directed 1 ea 0RF M17.11 - Unilateral primary osteoart hritis, right knee mupirocin 2% (Centany) 1 appl topical BID 22 grams 0RF 4 weeks L30.9 - Dermatitis, unspecified Changed From insulin glargine U-300 conc (Toujeo SoloStar U-300 Insulin) 36 units (0.12 mL) subcut DAILY 30 days 3.6 mL 3RF E11.9 - Type 2 diabetes mellitus without complications To insulin glargine U-300 conc (Toujeo SoloStar U-300 Insulin) 20 units (0.0667 mL) subcut DAILY 4.5 mL 3RF 30 days E11.9 - Type 2 diabetes mellitus without complications Patient Instructions: Goal: A1c to remain below 7.0, blood pressure to remain below 140/90. Goal LDL to be below 100 Barriers: Adherence to physical activity and healthy eating habits.
[2025-02-28 15:50] VITALS: BP 130/62; PULSE 61; TEMP 36.4; O2SAT 98
== END 2025-02-28 17:05 | disposition home or self-care (01) ==
LOC: HO.HMCH 15:00
PROVIDERS: PCP Physician Assistant; Visit Provider Physician Assistant
DX: E11.65 Type 2 diabetes mellitus with hyperglycemia (principal); Z79.4 Long term (current) use of insulin

== ENCOUNTER → 2025-02-28 14:59 | Outpatient (BNVA) | payer OTHER, SELFPAY | PROVIDERS: PCP Physician Assistant; Visit Provider Physician Assistant | DX: E11.65 Type 2 diabetes mellitus with hyperglycemia (principal); E11.22 Type 2 diabetes mellitus with diabetic chronic kidney disease; I12.9 Hypertensive chronic kidney disease with stage 1 through stage 4 chronic kidney disease, or unspecified chronic kidney disease; I89.0 Lymphedema, not elsewhere classified; K21.9 Gastro-esophageal reflux disease without esophagitis; R32 Unspecified urinary incontinence; F41.9 Anxiety disorder, unspecified; M17.11 Unilateral primary osteoarthritis, right knee; E78.2 Mixed hyperlipidemia; L30.9 Dermatitis, unspecified; F33.1 Major depressive disorder, recurrent, moderate; F41.1 Generalized anxiety disorder; N18.30 Chronic kidney disease, stage 3 unspecified; Z79.4 Long term (current) use of insulin | CPT/HCPCS: 83036; 96127; 99212 ==